=== PATIENT | female | born 1965 | race Caucasian/White ===

== ENCOUNTER 2024-01-25 13:49 | Day surgery (SDC) | payer MEDICARE, OTHER, SELFPAY ==
[2024-01-25] VITALS (17 sets, daily range): BP systolic 93–144; BP diastolic 48–96; BMI 25.6
[2024-01-25 07:57] LABS: % Basophils 0.2 % (0-2); % Eosinophils 0.1 % (0-6); % Immature Granulocytes 0.5 % (0-0.5); % Lymphocytes 6.4 % (20.5-51.1); % Monocytes 3.5 % (1.7-9.3); % Neutrophils 89.3 % (42.2-75.2); Absolute Immature Granulocytes 0.1 10^3/uL (0-0.05); Absolute Lymphocytes 1.2 10^3/uL (1.2-3.4); Absolute Monocytes 0.6 10^3/uL (0.1-0.6); Absolute Neutrophils 16.4 10^3/uL (1.4-6.5); Hematocrit 43.2 % (37.0-47.0); Hemoglobin 14.5 g/dL (12.0-16.0); Mean Corp Hgb Conc. 33.6 g/dL (33.0-37.0); Mean Corpuscular Hgb 29.4 pg (27.0-31.0); Mean Corpuscular Volume 87.4 fL (81.0-99.0); Mean Platelet Volume 10.2 fL (7.4-10.4); Nucleated Red Blood Cells % 0 %; Platelet Count 301 10^3/uL (130-400); Red Blood Cell Count 4.94 10^6/uL (4.20-5.40); White Blood Cell Count 18.3 10^3/uL (4.8-10.8)
[2024-01-25 08:15] LABS: ALT (SGPT) 17 U/L (0-35); AST (SGOT) 23 U/L (14-36); Albumin 4.8 g/dl (3.5-5.0); Alkaline Phosphatase 88 U/L (38-126); Blood Urea Nitrogen 16 mg/dl (7-17); Calcium 9.7 mg/dl (8.4-10.2); Carbon Dioxide 25 mmol/L (22-30); Chloride 104 mmol/L (98-107); Estimated Creatinine Clearance 82 ml/min; Glucose 110 mg/dl (70-99); Potassium 4.4 mmol/L (3.5-5.1); Sodium 141 mmol/L (135-145); Total Bilirubin 0.6 mg/dl (0.2-1.3); Total Protein 7.1 g/dl (6.3-8.2); eGFR > 60.00
[2024-01-25] MEDS: ZOFRAN 4 MG IV ×2 (08:32→12:37)
[2024-01-25] MEDS: DILAUDID 0.5 MG IV ×2 (08:32→10:55)
[2024-01-25] MEDS: NSS 1000 IV (08:32)
[2024-01-25] MEDS: ROCEPHIN 1000 MG IV (08:33)
--- NOTE | 2024-01-25 09:02 | ED.GENMED ---
History of Present Illness
General
Chief Complaint: Abdominal Pain
Source: patient and family
Exam Limitations: none
Time Seen by Provider: 01/25/24 07:44
Nursing documentation reviewed up to this point in time: agreed with
History of Present Illness
History of Present Illness:
58-year-old female MS, interstitial cystitis kidney stones presents with right-sided abdominal pain nausea no vomiting, with urinary frequency and urgency diagnosed with a UTI prescribed Macrobid has not gotten it filled pain worsened this morning,
still has her appendix feels her gallbladder, she feels generally weak like her MS is worsening since she has been ill, has been doing intermittent catheterizations
Past History
Past History
ED Past Medical History: Other (MS)
ED Past Surgical History: Urological
Social History
Tobacco: Non-smoker
Alcohol: None
Drug: None
Living: with family
Review of Systems
Review of Systems
All Other Systems: Not applicable
Constitutional: Reports fatigue; Denies fever
EENT: Reports no symptoms
Respiratory: Reports no symptoms
Cardiac: Reports no symptoms
ABD/GI: Reports abdominal pain and nausea
: Reports dysuria, incontinence and urgency
Phy Exam
Physical Exam
Physical Exam:
Physical Exam
General: 58-year-old female looks uncomfortable
Neck: Dry lips
Heart: s1/s2 regular rate and rhythm, no murmur. equal radial pulses.
Lungs: no acute respiratory distress. clear bilaterally
Abdomen: Tender in the right lower abdomen
Neuro: alert and oriented. Globally weak
Skin: no rash
Psychiatric: well kept. interactive and cooperative
Extremities: no edema
Course
Orders/Labs/Results
Orders:
Orders
01/25/24 07:37
CMP [Comprehensive Metabolic Panel] Urgent
Complete Blood Count/With Diff Urgent
01/25/24 08:16
CT Abd/Pel (IV only)-DH only Urgent
Comment:
Reason For Exam: rlq pain
CefTRIAXone [Rocephin] 1,000 mg IV NOW STA
01/25/24 08:26
0.9% Sodium Chloride 1000 ml [Nss] 1,000 ml IV BOLUS
HYDROmorphone [Dilaudid] 0.5 mg IV NOW STA
Ondansetron Injectable [Zofran] 4 mg IV NOW STA
01/25/24 10:38
Consult Surgery [SURGICAL CONSULT] Urgent
Consulting Provider: Darius Calderon
Was physician already notified: Yes
01/25/24 10:40
HYDROmorphone [Dilaudid] 0.5 mg IV NOW STA
Abnormal Lab Results
01/25/24
07:37
WBC 18.3 H 10^3/uL
(4.8-10.8)
Abs Immat Gran (auto) 0.1 H 10^3/uL
(0-0.05)
Absolute Neuts (auto) 16.4 H 10^3/uL
(1.4-6.5)
Neutrophils % 89.3 H %
(42.2-75.2)
Lymphocytes % 6.4 L %
(20.5-51.1)
Glucose 110 H mg/dl
(70-99)
01/25/24 07:37
01/25/24 07:37
Vital Signs
Initial and Last Documented VS:
Initial Vital Signs
Temp Pulse Resp BP Pulse Ox
98.8 F 97 18 115/74 97
01/25/24 07:22 01/25/24 07:22 01/25/24 07:22 01/25/24 07:22 01/25/24 07:22
Last Documented Vital Signs
Temp Pulse Resp BP Pulse Ox
98.8 F 93 11 122/74 94
01/25/24 07:22 01/25/24 10:19 01/25/24 10:19 01/25/24 10:19 01/25/24 10:19
MDM/Problems Addressed
Differential Diagnosis Includes:
UTI pyelonephritis ureteral stone appendicitis diverticulitis less likely ovarian pathology
MDM/Problems Addressed:
Right lower abdominal pain
Chronic conditions affecting care: Neurological disorder
Acute Exacerbation and/or Progression of Chronic Illness: Neurological disorder
*Radiology
Radiology exam reviewed: preliminary read by ED provider
*Pulse Oximetry
Patient hypoxic: no
*Critical Care Note
Total Time (30-74mins, 75-104mins- exclusive of procedures): Not Applicable
Update Note
Update Note:
Reviewed with radiology positive appendicitis patient updated reviewed with general surgery on-call
ED Attending Note
-
Portions of this chart may have been created with voice recognition software.� Occasional wrong word or��sound alike� substitutions may have occurred due to the inherent limitations of voice recognition software.
Discharge Plan
Departure
Patient Disposition: Admit
Date of Disposition: 01/25/24
Time of Disposition: 10:47
Admit to: Med/Surg
Presentation/result/management discussed w/ accepting MD/DO: GS
Condition: Good
Covid-19: Not Applicable
Discharge Problem:
Acute appendicitis
Prescriptions:
No Action
dalfampridine 10 mg tablet extended release 12 hr
10 mg PO BID
cholecalciferol (vitamin D3) [Vitamin D3] 125 mcg (5,000 unit) Tablet
125 mcg PO DAILY
cranberry
1 cap PO DAILY
polyethylene glycol 3350 17 gram powder in packet
17 g PO PRN PRN (Reason: constipation)
pantoprazole 40 mg tablet,delayed release (DR/EC)
40 mg PO PRN PRN (Reason: GERD)
tramadol 50 mg tablet
50 mg PO Q8H PRN (Reason: Pain) Qty: 14 0RF
methenamine hippurate 1 gram tablet
1 g PO BID Qty: 30 0RF
baclofen 10 mg Tablet
10 mg PO Q4H Qty: 180 0RF
Referrals:
Uli Kohler MD [Family Provider] -
Interventions
Interventions:
*Risk Screen - Suicide Last Done: 01/25/24 07:22
*General Assessment Last Done: 01/25/24 07:22
*Neglect/Abuse Screening Last Done: 01/25/24 07:22
ED- Fall Risk Assessment Last Done: 01/25/24 09:17
*ED COVID-19 Vaccine History Last Done: 01/25/24 07:22
[place]-Rkzmdq-Wvtjjddpbr Assessment Last Done: 01/25/24 07:22
Discharge Date and Time
Print Language: AZERI
--- NOTE | 2024-01-25 11:22 | CON.GS ---
Addendum entered and electronically signed by Darius Calderon MD 01/25/24 14:05:
Patient seen and examined.
Patient is a 58 yo F with a PMH of MS c/b interstitial cystitis, nephrolithiasis, and s/p liposuction who presents with less than 24 hours of RLQ abdominal pain. Ms. Garza states that her symptoms began acutely earlier this morning at around
midnight. Prior to this she states that she was doing well. She reports constant and worsening RLQ abdominal pain. She describes this as a fiery burning sensation. Symptoms are exacerbated by movement. She reports nausea, but denies any
vomiting. No worsening urinary symptoms or fluctuations in bowel habits. No personal or family history of IBD or colon cancers. Last colonoscopy was approximately 10 years ago.
Gen: NAD
Abd: soft, tender to palpation in RLQ, mild distension, non-peritoneal
Labs and CT scan imaging were reviewed.
Patient is a 58 yo F p/w acute appendicitis.
The natural history and pathophysiology of appendicitis was discussed. CT scan imaging as a relates to her appendix was reviewed. Options for management including medical management with antibiotics versus surgical management with appendectomy
were considered and discussed. The pros and cons of both approaches was discussed. Specifically, we discussed failure of medical management and future episodes of appendicitis versus surgical risks. Patient would like to proceed with surgery.
Plan for a laparoscopic appendectomy. The procedure itself, as well as the risks, benefits, and alternatives was discussed. Specifically, we discussed the risks of bleeding, infection, injury to surrounding structures (bowel, bladder), staple line
leak, need for open procedure. Typical postprocedural recovery was discussed. All questions answered. Consent signed.
-- Laparoscopic appendectomy
-- NPO, IVF
-- Antibiotics: Zosyn
-- Admit postoperatively
Original Note:
Consultation
-
Date/Time Consultation Performed: 01/25/2024; 11:22am
Requesting Provider: Dr. Garcia
Reason for Consultation: Abdominal Pain
Medical History
-
Chief Complaint: Abdominal Pain
History of Present Illness:
58 F with a PMHx of MS, interstitial cystitis and nephrolithiasis presents with 1 day of RLQ pain that the patient describes as constant and 'fiery'. Pt states that she has never experienced any pain like this before. The pain is exacerbated by
movement. The pt denies taking any medication to try and relieve the pain. Pt states that she was nauseous this morning, but denies vomiting, diarrhea, constipation, or fevers.
Past Medical History
Past Medical History: Other (MS, Nephrolithiasis, Interstitial Cystitis)
Past Surgical History: Other (Liposuction)
Social History
Tobacco: Non-Smoker
Alcohol: None
Drug: None
Living: With Family
Family History
Family History: Reviewed & Not Pertinent and Other (No family history of IBD or colon cancer)
Allergies / Home Medications
Allergy/AdvReac Type Severity Reaction Status Date / Time
No Known Allergies Allergy Verified 07/29/23 12:21
�Medication �Instructions �Recorded �Confirmed �Type
dalfampridine 10 mg 10 mg PO BID ms 06/24/22 01/25/24 History
tablet,extended release,12 hr
cholecalciferol (vitamin D3) 125 125 mcg PO DAILY 07/26/23 01/25/24 History
mcg (5,000 unit) tablet (Vitamin
D3)
Lactobac no.2-Bifidobac no.1-S. 1 cap PO DAILY 01/25/24 01/25/24 History
thermo 112.5 billion cell capsule
(Visbiome)
baclofen 10 mg tablet 10 mg PO 5/D 01/25/24 01/25/24 History
cranberry extract 200 mg capsule 200 mg PO DAILY 01/25/24 01/25/24 History
omeprazole 10 mg capsule,delayed 10 mg PO DAILYPRN PRN GERD 01/25/24 01/25/24 History
release
sennosides 8.6 mg tablet 8.6 mg PO DAILYPRN PRN constipation 01/25/24 01/25/24 History
Review of Systems
-
History Source: Patient
All other systems: Negative unless noted
A 10 point review of systems was completed, and was negative except as per HPI.
Physical Exam
Vital Signs
Temp Pulse Resp BP Pulse Ox
98.8 F 100 15 139/96 98
01/25/24 07:22 01/25/24 11:00 01/25/24 11:00 01/25/24 11:00 01/25/24 10:30
01/24/24 01/25/24 01/26/24
06:59 06:59 06:59
Actual Weight 65.5 kg
Body Mass Index (BMI) 25.6
Lab Results
01/25/24 07:37
01/25/24 07:37
WBC 18.3 10^3/uL (4.8-10.8) H 01/25/24 07:37
Hgb 14.5 g/dL (12.0-16.0) 01/25/24 07:37
Hct 43.2 % (37.0-47.0) 01/25/24 07:37
Plt Count 301 10^3/uL (130-400) 01/25/24 07:37
Abs Immat Gran (auto) 0.1 10^3/uL (0-0.05) H 01/25/24 07:37
Neutrophils % 89.3 % (42.2-75.2) H 01/25/24 07:37
Physical Exam
General: No Apparent Distress
Respiratory: Non Labored Respirations
GI: Tender (focally in the RLQ), Distended (mildly) and Other (No rebound, rigidity, or guarding)
Skin: Warm
Neuro: Awake, Alert and Oriented
Psych: Calm
Data Reviewed
-
CT Scan: Image Personally Visualized and interpreted and Report Reviewed by me (indicative of acute appendicitis without perforation or abscess. )
Assessment / Plan
-
58 y/o F with PMHx MS, Nephrolithiasis presenting with acute appendicitis.
1. Laparoscopic Appendectomy to be scheduled today
2. NPO, IV Fluids
3. Continue Pain Control
4. Preoperative Abx - Zosyn
[2024-01-25] MEDS: ZOSYN 50 IV ×2 (12:11→17:36)
--- NOTE | 2024-01-25 13:50 | W.SUR.PREOP ---
Pre-Operative Surgical Note
-
I have examined this patient prior to the performance of the scheduled procedure.
The patient's condition is unchanged from the time of the current History and
Physical and the patient is able to undergo the scheduled procedure.
--- NOTE | 2024-01-25 15:37 | W.IMMPOSTOP ---
Addendum entered and electronically signed by Darius Calderon MD 01/25/24 15:46:
[facility]# [id number]
Original Note:
Surgical Immed Post Op Note
-
Primary Surgeon: Yumiko
Assisting Surgeon: None
Pre-op Diagnosis: Acute appendicitis
Post-op Diagnosis: Acute appendicitis
Procedure Performed: Laparoscopic appendectomy
Anesthesia Type: General
Specimen / Cultures:
1. Appendix
Estimated Blood Loss: 3 cc
Complications: None
Operative Findings:
1. Moderately inflamed and dilated appendix, no evidence of perforation
2. Mesentery taken with [employer], base with rose load stapler
--- NOTE | 2024-01-25 16:27 | PTCARENOTE ---
Patient has MS and is concerned she has not had her Baclofen today, Dr Calderon TT regarding same. patient repositioned for comfort with knees elevated, and towel roll under neck. Kia Beth RN BSN.
[2024-01-25] MEDS: NORMOSOL-R 1000 IV (17:02)
[2024-01-25] MEDS: LIORESAL 10 MG PO ×2 (17:07→21:17)
[2024-01-25] MEDS: TYLENOL PO (17:30)
[2024-01-25] MEDS: LOVENOX 40 MG SC (17:36)
[2024-01-25] MEDS: NON-FORMULARY ITEM 10 MG PO (21:17)
[2024-01-25] MEDS: TYLENOL 650 MG PO (21:17)
[2024-01-26] VITALS (8 sets, daily range): BP systolic 103–116; BP diastolic 59–72; PULSE 80; O2SAT 95
[2024-01-26] MEDS: ZOSYN 50 IV ×2 (00:16→05:29)
[2024-01-26] MEDS: TYLENOL 650 MG PO ×5 (00:16→21:27)
[2024-01-26] MEDS: TYLENOL PO (04:13)
[2024-01-26] MEDS: TORADOL 10 MG IV (05:51)
[2024-01-26] MEDS: NON-FORMULARY ITEM 10 MG PO ×2 (09:49→21:27)
[2024-01-26] MEDS: LIORESAL 10 MG PO ×5 (09:49→21:28)
--- NOTE | 2024-01-26 10:24 | W.PN.GS2 ---
Today's Communication / Plan
-
-- HLIV
-- No need for further antibiotics
-- DC home today pending PT eval
Assessment / Plan
-
Patient is a 58 yo F POD#1 s/p laparoscopic appendectomy
Recovering well. No postoperative concerns.
-- Regular diet
-- Pain control: Tylenol, Toradol, Tramadol, IV Dilaudid as needed
-- HLIV
-- No need for further antibiotics
-- Home meds
-- DVT: Lovenox
-- DC home today pending PT eval
Subjective Data
-
Date of Service: January 26, 2024
Feels well and improved. Pain well-controlled. No nausea or vomiting. No fevers. Voiding. Passing flatus, no BM. Minimal ambulation, feels improved strength though still weak.
Objective Data
-
Intake and Output
01/25/24 01/26/24 01/27/24
06:59 06:59 06:59
Intake Total 1458 / 1458
Output Total 550 / 550
Balance 908 / 908
Intake:
Oral fluids 583 / 583
IV fluids (Total) 725 / 725
Normosol-R 1,000 ml @ 100 mls/ 75 / 75
hr IV .Q10H LISANDRA Rx#:[id number]
norm 50 / 50
IV piggybacks 150 / 150
Output:
Urine, Voided 550 / 550
Other:
Number of unmeasured voidings 1
How many times incontinent 1
MODERATE amount urine
How many times incontinent 2
SATURATED amount urine
Vital Signs
Temp Pulse Resp BP Pulse Ox
98.1 F 71 18 103/59 95
01/26/24 07:35 01/26/24 07:35 01/26/24 07:35 01/26/24 07:35 01/26/24 07:35
Lab Results
01/25/24 07:37
01/25/24 07:37
Calcium 9.7 mg/dl (8.4-10.2) 01/25/24 07:37
Total Bilirubin 0.6 mg/dl (0.2-1.3) 01/25/24 07:37
AST 23 U/L (14-36) 01/25/24 07:37
ALT 17 U/L (0-35) 01/25/24 07:37
Alkaline Phosphatase 88 U/L (38-126) 01/25/24 07:37
Total Protein 7.1 g/dl (6.3-8.2) 01/25/24 07:37
Albumin 4.8 g/dl (3.5-5.0) 01/25/24 07:37
Physical Exam
-
Gen: NAD
Abd: soft, NT/ND, non-peritoneal, incisions c/d/i - no erythema, ecchymosis or drainage
[2024-01-26] MEDS: LOVENOX 40 MG SC (18:09)
[2024-01-27 00:17] VITALS: BP 106/62
[2024-01-27] MEDS: TYLENOL PO (01:02)
[2024-01-27] MEDS: TYLENOL 650 MG PO ×3 (04:28→12:17)
[2024-01-27 07:53] VITALS: BP 138/81
--- NOTE | 2024-01-27 08:22 | W.PN.GS2 ---
Today's Communication / Plan
-
-- DC today
Assessment / Plan
-
Patient is a 58 yo F POD#2 s/p laparoscopic appendectomy
Recovering well. No postoperative concerns.
-- Regular diet
-- Pain control: Tylenol, Toradol, Tramadol, IV Dilaudid as needed
-- HLIV
-- No need for further antibiotics
-- Home meds
-- Miralax
-- DVT: Lovenox
-- DC home today
Subjective Data
-
Date of Service: January 27, 2024
No complaints. Pain well-controlled. Denies nausea or vomiting. Passing flatus, no BM. No fevers.
Objective Data
-
Intake and Output
01/26/24 01/27/24 01/28/24
06:59 06:59 06:59
Intake Total 1458 / 1458 720 / 720
Output Total 550 / 550 675 / 675
Balance 908 / 908 45 / 45
Intake:
Oral fluids 583 / 583 720 / 720
IV fluids (Total) 725 / 725
Normosol-R 1,000 ml @ 100 mls/ 75 / 75
hr IV .Q10H LISANDRA Rx#:[id number]
norm 50 / 50
IV piggybacks 150 / 150
Output:
Urine, Voided 550 / 550 675 / 675
Other:
Number of unmeasured voidings 1
How many times incontinent 1
MODERATE amount urine
How many times incontinent 2
SATURATED amount urine
Vital Signs
Temp Pulse Resp BP Pulse Ox
97.8 F 68 16 138/81 95
01/27/24 07:53 01/27/24 07:53 01/27/24 07:53 01/27/24 07:53 01/27/24 07:53
Lab Results
01/25/24 07:37
01/25/24 07:37
Calcium 9.7 mg/dl (8.4-10.2) 01/25/24 07:37
Total Bilirubin 0.6 mg/dl (0.2-1.3) 01/25/24 07:37
AST 23 U/L (14-36) 01/25/24 07:37
ALT 17 U/L (0-35) 01/25/24 07:37
Alkaline Phosphatase 88 U/L (38-126) 01/25/24 07:37
Total Protein 7.1 g/dl (6.3-8.2) 01/25/24 07:37
Albumin 4.8 g/dl (3.5-5.0) 01/25/24 07:37
Physical Exam
-
Gen: NAD
Abd: soft, NT/ND, non-peritoneal, incisions c/d/i - no erythema, ecchymosis, or drainage
--- NOTE | 2024-01-27 08:25 | W.DS.TRANS ---
DC Summary - Nanny Babysitter
-
Discharge Instructions:
Discharge Diagnosis/Procedures Laparoscopic appendectomy
Diet Regular
Activity No strenuous activity
Additional Activity No heavy lifting (>20 lbs) or strenuous
activities for 2 weeks postoperatively
Driving Restrictions As prior to admission
Bathing Restrictions OK to Shower
Wound Care Keep incisions clean and dry. Glue will flake
off in 2 to 3 weeks. Stitches will dissolve.
Instructions:
Stand-Alone Forms:
Changes to Home Medications: No
Discharge Medications:
DC Medications w/original date entered in [employer]
dalfampridine 10 mg tablet,extended release,12 hr 10 mg PO BID ms 06/24/22
cholecalciferol (vitamin D3) 125 mcg (5,000 unit) tablet (Vitamin D3) 125 mcg PO DAILY Supplement 07/26/23
Lactobac no.2-Bifidobac no.1-S. thermo 112.5 billion cell capsule (Visbiome) 1 cap PO DAILY Supplement 01/25/24
acetaminophen 325 mg tablet 650 mg (2 x 325 mg) PO Q4HPRN PRN mild pain #1 tab 01/25/24
baclofen 10 mg tablet 10 mg PO 5/D Muscle Spasms 01/25/24
cranberry extract 200 mg capsule 200 mg PO DAILY Supplement 01/25/24
ibuprofen 200 mg tablet 400 - 600 mg (2 - 3 x 200 mg) PO Q6HPRN PRN moderate pain #1 tab 01/25/24
omeprazole 10 mg capsule,delayed release 10 mg PO DAILYPRN PRN GERD 01/25/24
sennosides 8.6 mg tablet 8.6 mg PO DAILYPRN PRN constipation 01/25/24
tramadol 50 mg tablet 50 mg PO Q6HPRN PRN severe pain/breakthrough pain #5 tabs 01/25/24
Home Medication Changes
Pending Results: No
[2024-01-27] MEDS: NON-FORMULARY ITEM 10 MG PO (09:41)
[2024-01-27] MEDS: LIORESAL 10 MG PO ×2 (09:43→12:17)
[2024-01-27] MEDS: MIRALAX 17 GRAMS PO (10:04)
--- NOTE | 2024-01-27 10:07 | CM ---
senior national account manager reviewed patient's chart and met with patient and patient lives alone in a one story home, patient with MS has aides 3-4 hours per day and services to increase after discharge from the hospital for a few weeks. Patient is current with
[facility], Patient has an electric scooter, lift chair, in home.
PCP: Dr. Kohler
Pharmacy: [facility]
Plan; Home today with homecare
[facility]
[phone]
[2024-01-27 12:40] VITALS: BP 145/72
[2024-01-27 13:24] VITALS: BP 145/72
== END 2024-01-27 15:45 | disposition home or self-care (01) ==
LOC: PACU 13:49
PROVIDERS: Physician Assistant; ATTENDING PHYSICIAN Surgery; EMERGENCY PHYSICIAN Emergency Medicine; FAMILY PHYSICIAN Family Medicine
DX: K35.80 Unspecified acute appendicitis (principal); R10.31 Right lower quadrant pain; N30.10 Interstitial cystitis (chronic) without hematuria
CPT/HCPCS: 44970; 88304; 74177; 80053; 85025; 96361; 96374; 96375; 97163; 97530; 99285; Q9967

== ENCOUNTER 2024-05-15 10:21 | Inpatient (IN) | payer MEDICARE, OTHER, SELFPAY ==
[2024-05-12] VITALS (9 sets, daily range): BP systolic 109–132; BP diastolic 58–92; BMI 27.6
[2024-05-12 11:35] LABS: % Basophils 0.6 % (0-2); % Eosinophils 0.2 % (0-6); % Immature Granulocytes 0.2 % (0-0.5); % Lymphocytes 4.6 % (20.5-51.1); % Neutrophils 88.4 % (42.2-75.2); Absolute Basophils 0.1 10^3/uL (0-0.2); Absolute Lymphocytes 0.4 10^3/uL (1.2-3.4); Absolute Monocytes 0.6 10^3/uL (0.1-0.6); Absolute Neutrophils 8.6 10^3/uL (1.4-6.5); Hematocrit 41.6 % (37.0-47.0); Hemoglobin 13.9 g/dL (12.0-16.0); Mean Corp Hgb Conc. 33.4 g/dL (33.0-37.0); Mean Corpuscular Hgb 28.9 pg (27.0-31.0); Mean Corpuscular Volume 86.5 fL (81.0-99.0); Mean Platelet Volume 9.6 fL (7.4-10.4); Nucleated Red Blood Cells % 0 %; Platelet Count 299 10^3/uL (130-400); Red Blood Cell Count 4.81 10^6/uL (4.20-5.40); Red Cell Dist. Width 12.8 % (11.5-14.5); White Blood Cell Count 9.7 10^3/uL (4.8-10.8)
--- NOTE | 2024-05-12 11:41 | ED.GENMED ---
History of Present Illness
<Rosa Gonzalez PA-C - Last Filed: 05/12/24 18:25>
General
Chief Complaint: Weakness
Source: patient
Exam Limitations: none
Time Seen by Provider: 05/12/24 11:20
Nursing documentation reviewed up to this point in time: agreed with
History of Present Illness
History of Present Illness:
Patient is a 58-year-old female history MS presenting to the emergency department due to generalized weakness. Patient states that she woke up this morning with nasal congestion, mild sore throat, and significant generalized weakness. Patient
states she is unable to move her arms or legs due to weakness. This is much worse than her baseline. Patient denies any associated fevers, chest pain, shortness of breath, productive cough. Patient denies any numbness/tingling in extremities, or
back pain.
Patient did contact her primary care provider and given patient's MS�was sent to the emergency department for further evaluation.
Patient does have history of frequent UTIs although currently denies any urinary symptoms.
Past History
<Rosa Gonzalez PA-C - Last Filed: 05/12/24 18:25>
Past History
ED Past Medical History: Other (MS)
ED Past Surgical History: Urological
Social History
Tobacco: Non-smoker
Alcohol: None
Drug: None
Living: with family
Review of Systems
<Rosa Gonzalez PA-C - Last Filed: 05/12/24 18:25>
Review of Systems
Allergies reviewed?: Yes
All Other Systems: ROS reviewed and negative except as documented in HPI and ROS
Phy Exam
<Rosa Gonzalez PA-C - Last Filed: 05/12/24 18:25>
Physical Exam
Physical Exam:
Vitals: Patient's vital signs are stable. Temp 99.4 F
General: Patient is well appearing, no acute distress
Skin: Warm and dry, no rashes or lesions
Head: Normocephalic, atraumatic
Eyes: Sclera nonicteric. EOMs intact. No nystagmus.
Throat: Posterior pharynx mildly erythematous without any tonsillar edema or exudates. Uvula midline. No SCUDDING INSPECTOR. Protecting airway
Neck: Normal ROM, no cervical spine tenderness, no meningismus
Cardiac: Regular rate and rhythm, no murmurs.
Pulm: Normal respiratory effort, no wheezes, rales, rhonchi heard on exam.
Abdomen: Abdomen soft no abdominal tenderness.
Extremities: No evidence of cyanosis or edema. Generalized weakness in bilateral lower extremities > upper extremities. Palpable distal pulses
Neuro: AAOx3. CN II-XII intact. No focal neurologic deficits. Sensation intact.
Psychiatric: Normal affect.
Course
<Rosa Gonzalez PA-C - Last Filed: 05/12/24 18:25>
Orders/Labs/Results
Orders:
Orders
05/12/24 Lunch
Regular
At Your Request: Full Participation
05/12/24 11:14
Electrocardiogram (*1) Urgent
Reason for Study: Other
Other Reason for Exam: Possible Sepsis
Cardiac Monitoring- Treatment ONCE
EKG- Treatment ONCE
IV Insert/Care/Rem.- Treatment PRN
CR Chest - 2 Views Urgent
Comment:
Reason For Exam: suspected infection
05/12/24 11:26
COVID-19 Antigen Urgent
Source: Nasal Swab
Complete Blood Count/With Diff Urgent
Comprehensive Metabolic Panel Urgent
Lactic Acid Q4H
Comment: ON ICE, CANCEL 2ND ORDER IF FIRST LACTIC ACID LEVEL <2
Influenza A+B Rapid Molecular Urgent
FADIA Source: Nasal Swab
Specimen Description:
05/12/24 12:00
Straight cath- Treatment ONCE
0.9% Sodium Chloride 1000 ml [Nss] 1,000 ml IV BOLUS
Acetaminophen [Tylenol] 650 mg PO NOW STA
05/12/24 12:39
Urinalysis Reflex To Culture Urgent
Date Specimen was Collected: 05/12/24
Time Specimen was Collected: 12:13
05/12/24 14:46
Consult Neurology [NEUROLOGY CONSULT] Routine
Consulting Provider: Urban Alvarez
Was physician already notified: Yes
05/12/24 15:00
Admit/Transfer Patient As Directed
Co-Sign Provider:
Level of Care: Observation services
Assign to:: Medical/Surgical
Physician / Group: Rajesh Thomas
Diagnosis: Generalized weakness
PRN Pain Medication Management As Directed
May give lesser potent ordered pain med per pt: Yes
preference::
Protocol:: Medication orders for pain may be administered in a
manner that supports deferring to patient preference
when the pt is:
- Requesting an ordered lesser potent pain medication.
Least to most potent pain medications are defined
as: acetaminophen < NSAID < tramadol < opioids
(morphine, oxycodone, hydromorphone).
- Requesting a lesser dose of the same medication IF
ORDERED.
- Requesting a less intrusive route of administration
if both routes are prescribed by the provider (PO <
IV).
05/12/24 15:02
Code Status As Directed
Resuscitation Status: Full Code
05/12/24 16:43
Acetaminophen [Tylenol] 650 mg PO Q4HPRN PRN
05/12/24 17:46
Baclofen [Lioresal] 10 mg PO 5/D
05/12/24 17:46
Activity As Directed
Activity Level: With Assistance
Vital Signs As Directed
Frequency: Per unit guidelines
OT Consult [Ot Eval And Treat] Routine
PT Consult [Pt Eval And Treat] Routine
Activity Level: With Assistance
DX Deep Vein Thrombosis Video Routine
05/12/24 18:00
Enoxaparin Sodium [Lovenox] 40 mg SC QPM
05/12/24 20:00
dalfampridine 10 mg PO BID
05/13/24 06:00
Basic Metabolic Panel IN AM
Complete Blood Count/No Diff IN AM
05/13/24 08:00
Cholecalciferol (Vitamin D3) [VITAMIN D3 (cholecalciferol)] 125 mcg PO DAILY
Lactobac/Bifidobac [Visbiome] 1 cap PO DAILY
Abnormal Lab Results
05/12/24
11:26
Absolute Neuts (auto) 8.6 H 10^3/uL
(1.4-6.5)
Absolute Lymphs (auto) 0.4 L 10^3/uL
(1.2-3.4)
Neutrophils % 88.4 H %
(42.2-75.2)
Lymphocytes % 4.6 L %
(20.5-51.1)
Glucose 103 H mg/dl
(70-99)
05/12/24 11:26
05/12/24 11:26
Vital Signs
Initial and Last Documented VS:
Initial Vital Signs
Temp Pulse Resp
99.4 F 103 20
05/12/24 11:08 05/12/24 11:08 05/12/24 11:08
Last Documented Vital Signs
Temp Pulse Resp BP Pulse Ox
99.4 F 100 17 115/92 97
05/12/24 18:09 05/12/24 18:09 05/12/24 18:09 05/12/24 18:09 05/12/24 18:09
<Lucius España, - Last Filed: 05/12/24 13:01>
Orders/Labs/Results
Orders:
Orders
05/12/24 Lunch
Regular
At Your Request: Full Participation
05/12/24 11:14
Electrocardiogram (*1) Urgent
Reason for Study: Other
Other Reason for Exam: Possible Sepsis
Cardiac Monitoring- Treatment ONCE
EKG- Treatment ONCE
IV Insert/Care/Rem.- Treatment PRN
CR Chest - 2 Views Urgent
Comment:
Reason For Exam: suspected infection
05/12/24 11:26
COVID-19 Antigen Urgent
Source: Nasal Swab
Complete Blood Count/With Diff Urgent
Comprehensive Metabolic Panel Urgent
Lactic Acid Q4H
Comment: ON ICE, CANCEL 2ND ORDER IF FIRST LACTIC ACID LEVEL <2
Influenza A+B Rapid Molecular Urgent
FADIA Source: Nasal Swab
Specimen Description:
05/12/24 12:00
Straight cath- Treatment ONCE
0.9% Sodium Chloride 1000 ml [Nss] 1,000 ml IV BOLUS
Acetaminophen [Tylenol] 650 mg PO NOW STA
05/12/24 12:39
Urinalysis Reflex To Culture Urgent
Date Specimen was Collected: 05/12/24
Time Specimen was Collected: 12:13
05/12/24 14:46
Consult Neurology [NEUROLOGY CONSULT] Routine
Consulting Provider: Urban Alvarez
Was physician already notified: Yes
05/12/24 15:00
Admit/Transfer Patient As Directed
Co-Sign Provider:
Level of Care: Observation services
Assign to:: Medical/Surgical
Physician / Group: Rajesh Thomas
Diagnosis: Generalized weakness
PRN Pain Medication Management As Directed
May give lesser potent ordered pain med per pt: Yes
preference::
Protocol:: Medication orders for pain may be administered in a
manner that supports deferring to patient preference
when the pt is:
- Requesting an ordered lesser potent pain medication.
Least to most potent pain medications are defined
as: acetaminophen < NSAID < tramadol < opioids
(morphine, oxycodone, hydromorphone).
- Requesting a lesser dose of the same medication IF
ORDERED.
- Requesting a less intrusive route of administration
if both routes are prescribed by the provider (PO <
IV).
05/12/24 15:02
Code Status As Directed
Resuscitation Status: Full Code
05/12/24 16:43
Acetaminophen [Tylenol] 650 mg PO Q4HPRN PRN
05/12/24 17:46
Baclofen [Lioresal] 10 mg PO 5/D
05/12/24 17:46
Activity As Directed
Activity Level: With Assistance
Vital Signs As Directed
Frequency: Per unit guidelines
OT Consult [Ot Eval And Treat] Routine
PT Consult [Pt Eval And Treat] Routine
Activity Level: With Assistance
DX Deep Vein Thrombosis Video Routine
05/12/24 18:00
Enoxaparin Sodium [Lovenox] 40 mg SC QPM
05/12/24 20:00
dalfampridine 10 mg PO BID
05/13/24 06:00
Basic Metabolic Panel IN AM
Complete Blood Count/No Diff IN AM
05/13/24 08:00
Cholecalciferol (Vitamin D3) [VITAMIN D3 (cholecalciferol)] 125 mcg PO DAILY
Lactobac/Bifidobac [Visbiome] 1 cap PO DAILY
Abnormal Lab Results
05/12/24
11:26
Absolute Neuts (auto) 8.6 H 10^3/uL
(1.4-6.5)
Absolute Lymphs (auto) 0.4 L 10^3/uL
(1.2-3.4)
Neutrophils % 88.4 H %
(42.2-75.2)
Lymphocytes % 4.6 L %
(20.5-51.1)
Glucose 103 H mg/dl
(70-99)
05/12/24 11:26
05/12/24 11:26
Vital Signs
Initial and Last Documented VS:
Initial Vital Signs
Temp Pulse Resp
99.4 F 103 20
05/12/24 11:08 05/12/24 11:08 05/12/24 11:08
Last Documented Vital Signs
Temp Pulse Resp BP Pulse Ox
99.4 F 100 17 115/92 97
05/12/24 18:09 05/12/24 18:09 05/12/24 18:09 05/12/24 18:09 05/12/24 18:09
<Rosa Gonzalez PA-C - Last Filed: 05/12/24 18:25>
MDM/Problems Addressed
Differential Diagnosis Includes:
Not limited to: MS exacerbation, viral illness, dehydration, UTI, pneumonia, etc.
MDM/Problems Addressed:
58-year-old female presenting with significant generalized weakness associated with upper respiratory symptoms. Denies any fever, chills, productive cough, abdominal pain, dysuria. Does have history of frequent UTIs�recently finished antibiotic.
Sent by PCP given significant weakness and known MS. Vitals are stable on arrival, she does have a temp of 90 9.4F. Physical exam as above. Patient well-appearing, in no apparent distress. Heart regular rate and rhythm. Lungs are clear
bilaterally. Abdomen soft and nontender. She does have significant generalized weakness in bilateral lower extremities > upper extremities. No other focal neurologic deficits noted. Extensive workup was obtained. Labs reviewed without any
clinically significant abnormalities. Lactic is normal. Urine shows no signs of infection. Chest x-ray without any signs of acute disease, no pneumonia. Viral swab was negative. ECG without any acute ischemic changes.
Patient was given Tylenol, fluids in the emergency department. Suspect significant weakness likely secondary to MS exacerbation due to viral URI. Patient will require admission for further management given degree of weakness and unable to
transfer/pivot at home. Do not suspect bacterial pharyngitis. No SCUDDING INSPECTOR on exam. No indication for antibiotics at this time. Case was discussed with neurologist, Dr. Alvarez who advised against IV steroids at this time. Patient admitted to
hospitalist for further management of MS exacerbation and generalized weakness secondary to likely viral URI. Patient in stable condition at time of admission.
Chronic conditions affecting care:
MS
Acute Exacerbation and/or Progression of Chronic Illness:
Acute MS exacerbation secondary to URI
<Rosa Gonzalez PA-C - Last Filed: 05/12/24 18:25>
*Radiology
Radiology exam reviewed: preliminary read by ED provider and radiology read reviewed (No acute disease or pneumonia)
*Pulse Oximetry
Patient hypoxic: no
*EKG
Interpreted by ED Provider?: Yes
EKG Intrepretation Date: 05/12/24
Interpretation: normal
Comparison EKG: no changes
Heart Rate: 100
Rate: normal
Rhythm: sinus
[place]: normal axis
Interval: normal interval
QRS Pattern: normal QRS
Ischemia: no ischemia
*Scalping Machine Operator Interpretation
Rate: normal
Interpretation: normal
Heart Rate: 96
Rhythm: sinus
*Critical Care Note
Total Time (30-74mins, 75-104mins- exclusive of procedures): Not Applicable
<Rosa Gonzalez PA-C - Last Filed: 05/12/24 18:25>
Patient Management
Discussion with other providers: Hospitalist and Hand Shaper (Neurology-Dr. Alvarez)
Escalation/DeEscalation of care consider admission/obs:
Admit for further evaluation and management acute MS exacerbation
ED Attending Note
<Rosa Gonzalez PA-C - Last Filed: 05/12/24 18:25>
-
Portions of this chart may have been created with voice recognition software.� Occasional wrong word or��sound alike� substitutions may have occurred due to the inherent limitations of voice recognition software.
<Lucius España DO - Last Filed: 05/12/24 13:01>
ED Attending Note
Patient seen and examined by attending physician: Yes
I performed the substantive portion of visit, reviewed & personally made and approve the management plan that is documented in note by myself or SHELLIE.: Yes
I performed a history and physical exam of patient and discussed management with resident, I reviewed resident's note and agree with documented findings and plan of care.: Yes
ED Attending Note:
I evaluated the patient at bedside. The patient is generally weak and debilitated. She has a history of MS. She describes a viral syndrome with congestion and temperature was slightly elevated here. She normally is nonambulatory and gets around
with a wheelchair. She normally can transfer/pivot. However she could not even transfer/pivot today. She likely has MS exacerbation related to viral illness. Planning IV steroid/admission.
Discharge Plan
Departure
Patient Disposition: Admit
Date of Disposition: 05/12/24
Time of Disposition: 13:30
Presentation/result/management discussed w/ accepting MD/DO: Hospitalist
Discharge Problem:
Weakness, Multiple sclerosis exacerbation, URI (upper respiratory infection)
Interventions
Interventions:
*Risk Screen - Suicide Last Done: 05/12/24 11:14
*General Assessment Last Done: 05/12/24 11:13
*Neglect/Abuse Screening Last Done: 05/12/24 11:14
ED- Fall Risk Assessment Last Done: 05/12/24 12:10
*ED COVID-19 Vaccine History Last Done: 05/12/24 11:13
*Nursing Disposition Last Done: 05/12/24 17:45
ED- Cardiac Assessment Last Done: 05/12/24 12:10
ED- Neurological Assessment Last Done: 05/12/24 12:10
ED- Pulmonary Assessment Last Done: 05/12/24 12:10
Discharge Date and Time
Discharge Date/Time: 05/12/24 17:45
[2024-05-12 11:50] LABS: ALT (SGPT) 24 U/L (0-35); AST (SGOT) 27 U/L (14-36); Albumin 4.8 g/dl (3.5-5.0); Alkaline Phosphatase 84 U/L (38-126); Blood Urea Nitrogen 15 mg/dl (7-17); COVID-19 Antigen Negative (Negative); Calcium 9.6 mg/dl (8.4-10.2); Carbon Dioxide 26 mmol/L (22-30); Chloride 102 mmol/L (98-107); Glucose 103 mg/dl (70-99); Potassium 4.6 mmol/L (3.5-5.1); Sodium 142 mmol/L (135-145); Total Bilirubin 0.5 mg/dl (0.2-1.3); Total Protein 7.2 g/dl (6.3-8.2); eGFR > 60.00
[2024-05-12 12:22] LABS: Lactic Acid 1.3 mmol/L (0.7-2.0)
[2024-05-12] MEDS: TYLENOL 650 MG PO ×2 (12:36→16:54)
[2024-05-12] MEDS: NSS 1000 IV (12:38)
[2024-05-12 13:04] LABS: Urine Albumin Negative (Neg - Trace); Urine Bilirubin Negative (Negative); Urine Character Clear (Clear); Urine Color Yellow; Urine Glucose Negative (Negative); Urine Ketone Negative (Negative); Urine Leukocyte Negative (Negative); Urine Nitrite Negative (Negative); Urine Occult Blood Negative (Negative); Urine Urobilinogen Negative (Neg - 1+)
--- NOTE | 2024-05-12 13:59 | W.PN.UPDATE ---
Update Note
Progress Note Update
This serves as an addendum dictated by Iesha Amos on 05/12/2024.
I saw and examined the patient.
The FASHION PHOTOGRAPHER or PA's note was reviewed and I agree with the note.
Comment:
Patient is 58 years old female with history multiple sclerosis, multiple UTIs in the past, came into the hospital generalized weakness. Patient has symptoms of URI with nasal congestion sore throat generalized weakness and malaise starting
yesterday and no fevers or chills. Patient has significant weakness and although she requires some assistance she noticed that she is more weak than her usual. PCP instructed to come to the hospital for further evaluation. Chest x-ray
unremarkable, urinalysis unremarkable, Normal WBC. She was referred to hospitalist for further evaluation.
Physical exam:
General: Well Developed, Well Nourished and No Apparent Distress
HEENT: Normocephalic, Atraumatic and Moist Mucous Membranes
Respiratory: Clear to Auscultation; Negative Wheezes, Rales or Rhonchi
Cardiac: Regular Rhythm and S1/S2
GI: Soft, Nontender and Nondistended
Musculoskeletal: No Clubbing, No Cyanosis and No Edema
Neuro: Awake, Alert and Oriented, weakness in all extremities and more pronounced in LE
Psych: Calm
A/P:
Generalized weakness/URI/MS--> supportive care, neurology eval, no role for antibiotics, no role for high-dose of steroids. PT OT eval. sap project manager for discharge disposition
--- NOTE | 2024-05-12 14:08 | HPS.HSE ---
Family Physician
-
Family Physician: Uli Kohler
Chief Complaint
-
Weakness
History of Present Illness
Patient is 58-year-old female with past medical history significant for multiple sclerosis. Patient presented to [facility] ED today for evaluation of significant generalized weakness. Patient states that she has significantly increased weakness
when she woke up this morning accompanied by a mild sore throat, chills, and dry cough. She states that sore throat started yesterday evening and she went to bed feeling mainly at baseline minus mild sore throat. When she woke up this morning she
had profound weakness from her baseline. Patient has aide to assist her with ADLs, she generally can transfer/pivot with minimal assistance, today she can barely move any extremity. Once up she called her primary physician who instructed her to go
to emergency room for evaluation. Patient denies any fever, chest pain, shortness of breath, nausea, vomiting, constipation, diarrhea and no urinary symptoms.
Medical History
Past Medical History
Past Medical History: Reports Other
Additional Past Medical History:
Multiple sclerosis
urinary retention with incomplete bladder emptying
Chronic UTI
Past Surgical History: Reports Other
Additional Past Surgical History:
Appendectomy (01/2024)
Social History
Tobacco: Former Smoker
Living: With Family
Employment: Disabled
Family History
Family History: Not pertinent
Allergies / Home Medications
Allergies reflects when Allergies were last updated in [facility].
Home Medications with original date entered in [facility]
Allergy/Medication List:
Allergies
Allergy/AdvReac Type Severity Reaction Status Date / Time
No Known Allergies Allergy Verified 07/29/23 12:21
Home Medications
dalfampridine 10 mg tablet,extended release,12 hr 10 mg PO BID ms 06/24/22
cholecalciferol (vitamin D3) 125 mcg (5,000 unit) tablet (Vitamin D3) 125 mcg PO DAILY Supplement 07/26/23
Lactobac no.2-Bifidobac no.1-S. thermo 112.5 billion cell capsule (Visbiome) 1 cap PO DAILY Supplement 01/25/24
baclofen 10 mg tablet 10 mg PO 5/D Muscle Spasms 01/25/24
cranberry extract 200 mg capsule 200 mg PO DAILY Supplement 01/25/24
estradiol 0.01% (0.1 mg/gram) vaginal cream (Estrace) 1 appful vaginal Q72H 05/12/24
nitrofurantoin macrocrystal 50 mg capsule 50 mg PO DAILY 05/12/24
Review of Systems
-
History Source: Patient
Constitutional: Reports Chills and Other (generalized weakness)
EENT: Reports No Symptoms
Respiratory: Reports Cough (dry)
Cardiac: Reports No Symptoms
Abdomen/GI: Reports No Symptoms
: Reports No Symptoms
Musculoskeletal: Reports No Symptoms
Skin: Reports No Symptoms
Neurological: Reports No Symptoms
Endocrine: Reports No Symptoms
Hematologic/Lymphatic: Reports No Symptoms
Psych: Reports No Symptoms
Physical Exam
Vital Signs
Vital Signs
Temp Pulse Resp BP Pulse Ox
99.4 F 102 14 112/60 98
05/12/24 11:08 05/12/24 14:00 05/12/24 14:00 05/12/24 14:00 05/12/24 12:30
Physical Exam
General: Well Developed, Well Nourished, No Apparent Distress, Comfortable and Conversant
HEENT: NormoCephalic, Moist mucous membranes, Atraumatic, PERRLA, [place] Conjunctivae, Nose Appears Normal and Ears Appear Normal
Respiratory: Clear and Non Labored Respirations; No Wheezes, Rales, Rhonchi or Crackles
Cardiac: S1/S2 and Regular Rhythm; No Murmur, Rub or Gallop
GI: Soft, Non Tender, Non Distended and Normal Bowel Sounds; No Organomegaly
Rectal: Deferred by Provider
Genito-urinary: Deferred by me
Musculoskeletal: No Clubbing, No Cyanosis and No Edema
Skin: Warm and Dry; No Rash
Neuro: Awake, Alert, AO x 3, Nonfocal/grossly intact and Cranial Nerves Intact
Hematologic/Lymphatic: No Lymphadenopathy
Psych: Calm and Intact Judgment/Insight
Laboratory Results
-
05/12/24 11:26
05/12/24 11:26
Laboratory Results
Lactic Acid Cancelled 05/12/24 15:15
Total Bilirubin 0.5 mg/dl (0.2-1.3) 05/12/24 11:26
AST 27 U/L (14-36) 05/12/24 11:26
ALT 24 U/L (0-35) 05/12/24 11:26
Alkaline Phosphatase 84 U/L (38-126) 05/12/24 11:26
Data Reviewed
-
Diagnostic Radiology: Report Reviewed by me (CXR: 1. No radiographic evidence for pneumonia or other acute cardiopulmonary disease. 2. Multilevel osteoporotic insufficiency fractures in the lower thoracic and upper lumbar spine (T12 and L1).)
Lab Data: Labs Reviewed by me
Impression/Plan
-
IMPRESSION/PLAN:
#Severe Weakness
#Multiple Sclerosis
- Admit to Med/Surg for observation
- Neurology Consult
- continue home medications
- Consult PT/OT
Full Code
DVT Prophylaxis: Lovenox SQ
[2024-05-12] MEDS: LOVENOX 40 MG SC (18:29)
[2024-05-12] MEDS: LIORESAL PO (18:30)
[2024-05-12] MEDS: LIORESAL 10 MG PO ×2 (18:30→21:57)
[2024-05-12] MEDS: ANESTHETIC LOZENGE 1 LOZENGE PO (21:56)
[2024-05-13] MEDS: TYLENOL 650 MG PO ×2 (03:52→16:20)
[2024-05-13] MEDS: ANESTHETIC LOZENGE 1 LOZENGE PO ×2 (03:52→20:27)
[2024-05-13 06:00] VITALS: BMI 27.5
[2024-05-13 07:00] VITALS: BP 99/66
[2024-05-13 07:01] LABS: Hematocrit 36.6 % (37.0-47.0); Hemoglobin 12.4 g/dL (12.0-16.0); Mean Corp Hgb Conc. 33.9 g/dL (33.0-37.0); Mean Corpuscular Hgb 28.9 pg (27.0-31.0); Mean Corpuscular Volume 85.3 fL (81.0-99.0); Mean Platelet Volume 10.2 fL (7.4-10.4); Platelet Count 276 10^3/uL (130-400); Red Blood Cell Count 4.29 10^6/uL (4.20-5.40); Red Cell Dist. Width 12.9 % (11.5-14.5); White Blood Cell Count 7.5 10^3/uL (4.8-10.8)
[2024-05-13 07:22] LABS: Blood Urea Nitrogen 13 mg/dl (7-17); Calcium 8.7 mg/dl (8.4-10.2); Carbon Dioxide 26 mmol/L (22-30); Chloride 104 mmol/L (98-107); Estimated Creatinine Clearance 80 ml/min; Glucose 106 mg/dl (70-99); Potassium 4.1 mmol/L (3.5-5.1); Sodium 140 mmol/L (135-145); eGFR > 60.00
--- NOTE | 2024-05-13 08:23 | CON.NEURO ---
Consultation
Order
Date of Consultation: 05/13/24
Requesting Provider:
Reason for Consult:
Subjective/Objective
Subjective Data
Date of Service: May 13, 2024
Objective Data
Vital Signs
Temp Pulse Resp BP Pulse Ox
37.1 C 87 16 99/66 95
05/13/24 07:00 05/13/24 07:00 05/13/24 07:00 05/13/24 07:00 05/13/24 07:00
Lab Results
05/13/24 05:30
05/13/24 05:30
Sodium 140 mmol/L (135-145) 05/13/24 05:30
Potassium 4.1 mmol/L (3.5-5.1) 05/13/24 05:30
BUN 13 mg/dl (7-17) 05/13/24 05:30
Glucose 106 mg/dl (70-99) H 05/13/24 05:30
Calcium 8.7 mg/dl (8.4-10.2) 05/13/24 05:30
Patient Allergies
No Known Allergies Allergy (Verified 07/29/23 12:21)
Medications
-
Active Medications
Generic Name Dose Route Start Last Admin
Trade Name Freq PRN Reason Stop Dose Admin
Acetaminophen 650 mg 05/12/24 16:43 05/13/24 03:52
Acetaminophen 325 Mg Tablet PO 06/09/24 16:42 650 mg
Q4HPRN PRN Administration
mild pain/HOLLOWAY/temp> 100.4F
Baclofen 10 mg 05/12/24 17:46 05/12/24 21:57
Baclofen 10 Mg Tablet PO 06/09/24 17:45 10 mg
5/D LISANDRA Administration
Benzocaine/Menthol 1 lozenge 05/12/24 21:03 05/13/24 03:52
Benzocaine/Menthol Lozenge PO 06/09/24 21:02 1 lozenge
Q4HPRN PRN Administration
sorethroat
Cholecalciferol 125 mcg 05/13/24 08:00
Cholecalciferol (Vitamin D3) 125 Mcg Tablet (5,000 Units) PO 06/10/24 07:59
DAILY LISANDRA
Enoxaparin Sodium 40 mg 05/12/24 18:00 05/12/24 18:29
Enoxaparin Sodium 40 Mg/0.4 Ml Syringe SC 06/09/24 17:59 40 mg
QPM LISANDRA Administration
Lactobacillus/Bifidobacterium 1 cap 05/13/24 08:00
Lactobac/Bifidobac (Visbiome) PO 06/10/24 07:59
DAILY LISANDRA
Non-Formulary Medication 10 mg 05/12/24 20:00
Dalfampridine PO 06/09/24 19:59
BID LISANDRA
Sodium Chloride 0 flush 05/12/24 17:00
Sodium Chloride 0.9% (Flush) Syringe IV 06/09/24 16:59
PER PROTOCOL LISANDRA
Home Medications
�Medication �Instructions �Recorded
dalfampridine 10 mg 10 mg PO BID ms 06/24/22
tablet,extended release,12 hr
cholecalciferol (vitamin D3) 125 125 mcg PO DAILY Supplement 07/26/23
mcg (5,000 unit) tablet (Vitamin
D3)
Lactobac no.2-Bifidobac no.1-S. 1 cap PO DAILY Supplement 01/25/24
thermo 112.5 billion cell capsule
(Visbiome)
baclofen 10 mg tablet 10 mg PO 5/D Muscle Spasms 01/25/24
cranberry extract 200 mg capsule 200 mg PO DAILY Supplement 01/25/24
estradiol 0.01% (0.1 mg/gram) 1 appful vaginal Q72H Hormonal 05/12/24
vaginal cream (Estrace) Agent
nitrofurantoin macrocrystal 50 mg 50 mg PO DAILY Urinary Issue 05/12/24
capsule
Past History
Past History
ED Past Medical History: Other (MS, interstitial cystitis, nephrolithiasis, uremia and sepsis June 2023)
ED Past Surgical History: Appendectomy (January 2024), Urological (Ureteral stent placement) and Other (Liposuction, breast reduction surgery)
Social History
Tobacco: Non-smoker
Alcohol: None
Drug: None
Living: with family
Family History
Family History: Other (Reviewed and noncontributory)
[2024-05-13 08:40] VITALS: BP 121/72; PULSE 90; O2SAT 93
--- NOTE | 2024-05-13 08:57 | W.PN.HOSP.TC ---
Today's Communication/Plan
-
PT OT eval.
Assessment / Plan
Assessment / Plan
Physical exam:
General: Well Developed, Well Nourished and No Apparent Distress
HEENT: Normocephalic, Atraumatic and Moist Mucous Membranes
Respiratory: Clear to Auscultation; Negative Wheezes, Rales or Rhonchi
Cardiac: Regular Rhythm and S1/S2
GI: Soft, Nontender and Nondistended
Musculoskeletal: No Clubbing, No Cyanosis and No Edema
Neuro: Awake, Alert and Oriented, generalized weakness still present
Psych: Calm
A/P:
Fever:
Likely viral illness
On chronic nitrofurantoin as outpatient-restart.
Continue monitor temperature and symptoms
Supportive care
PT OT eval
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
Multiple sclerosis:
Continue dalfampridine 10 mg p.o. twice a day
Continue baclofen 10 mg p.o. 5 times a day
Discussed with neurology and no role for high-dose IV steroids so we will discontinue consult for now unless patient has major exacerbation.
Continue to monitor neurological
DVT prophylaxis:
Lovenox
CODE STATUS:
Full code
Anticipated Discharge: Within 24 hours
Subjective/Interval History
-
Date of Service: May 13, 2024
Patient had some fevers overnight. She still feels weak although slightly better. No shortness of breath.
Objective Data
-
Labs:
Laboratory Results
05/13/24
05:30
WBC 7.5
Hgb 12.4
Hct 36.6 L
Plt Count 276
Sodium 140
Potassium 4.1
Chloride 104
Carbon Dioxide 26
BUN 13
Creatinine 0.7
Glucose 106 H
Calcium 8.7
Vital Signs:
Vital Signs
Temp Pulse Resp BP Pulse Ox
98.8 F 87 16 99/66 95
05/13/24 07:00 05/13/24 07:00 05/13/24 07:00 05/13/24 07:00 05/13/24 07:00
I&O
05/12/24 05/13/24 05/14/24
06:59 06:59 06:59
Intake Total 720 / 720
Output Total 700 / 700
Balance
[2024-05-13 09:05] VITALS: BP 121/72; PULSE 94; O2SAT 94
[2024-05-13] MEDS: VITAMIN D3 (cholecalciferol) 125 MCG PO (09:33)
[2024-05-13] MEDS: VISBIOME 1 CAP PO (09:33)
[2024-05-13] MEDS: LIORESAL 10 MG PO ×5 (09:33→22:20)
[2024-05-13] MEDS: NON-FORMULARY ITEM 10 MG PO ×2 (12:32→22:20)
[2024-05-13] MEDS: MACRODANTIN 50 MG PO (13:00)
[2024-05-13] MEDS: ROBITUSSIN 200 MG PO ×2 (13:12→20:27)
[2024-05-13 15:00] VITALS: BP 102/70
[2024-05-13] MEDS: LIORESAL PO (16:25)
[2024-05-13] MEDS: LOVENOX 40 MG SC (16:53)
--- NOTE | 2024-05-13 17:07 | CM ---
Addendum entered by Sherri Carbajal RN 05/13/24 17:10:
[facility] letter given Pt did not sign copy . Copy on chart.
Original Note:
Alert awake oriented patient who lives alone in a 1 story home with a ramp. She has MS and has care givers daily for 6 hours.She is assisted in activates of daily living.She does have Scooter .She requested [facility] . PT OT recommended SNF.
[facility] in past .[facility] hx
Pharmacy [facility]
PCP Dr Kohler
PLAN She requested [facility] . PT OT recommended SNF
[2024-05-13 23:35] VITALS: BP 125/64
[2024-05-14] MEDS: ANESTHETIC LOZENGE 1 LOZENGE PO ×3 (03:00→22:40)
[2024-05-14 06:00] VITALS: BMI 27.5
[2024-05-14] MEDS: LIORESAL 10 MG PO ×4 (06:42→22:40)
[2024-05-14] MEDS: VITAMIN D3 (cholecalciferol) 125 MCG PO (06:42)
[2024-05-14] MEDS: VISBIOME 1 CAP PO (06:42)
[2024-05-14 07:00] VITALS: BP 115/69
[2024-05-14] MEDS: NON-FORMULARY ITEM 10 MG PO ×2 (07:55→20:51)
[2024-05-14] MEDS: MACRODANTIN 50 MG PO (08:23)
--- NOTE | 2024-05-14 09:19 | W.PN.HOSP.TC ---
Today's Communication/Plan
-
PT OT eval. Supportive care. Discharge planning in progress
Assessment / Plan
Assessment / Plan
Physical exam:
General: Well Developed, Well Nourished and No Apparent Distress
HEENT: Normocephalic, Atraumatic and Moist Mucous Membranes
Respiratory: Clear to Auscultation; Negative Wheezes, Rales or Rhonchi
Cardiac: Regular Rhythm and S1/S2
GI: Soft, Nontender and Nondistended
Musculoskeletal: No Clubbing, No Cyanosis and No Edema
Neuro: Awake, Alert and Oriented, generalized weakness still present
Psych: Calm
A/P:
Fever:
Likely viral illness
Improving
On chronic nitrofurantoin for recurrent UTI as outpatient
Continue monitor temperature and symptoms
Supportive care
PT OT eval
Asked PT to see her again today for reevaluation.
Patient initially wanted to go back home with her usual home care but now she is considering if she needs rehab and wants to discuss further with patient case coordinator.
manager agricultural for discharge disposition
Multiple sclerosis:
Continue dalfampridine 10 mg p.o. twice a day
Continue baclofen 10 mg p.o. 5 times a day
Discussed with neurology on 05/13 (Dr. Urban Alvarez) and no role for high-dose IV steroids so discontinued consult for now unless patient has major exacerbation in which case can call them back.
Continue to monitor neurological
DVT prophylaxis:
Lovenox
CODE STATUS:
Full code
Anticipated Discharge: 24 - 48 hours
Subjective/Interval History
-
Date of Service: May 14, 2024
Patient does notice some improvement but still not back close to her baseline. No fever anymore. Still some dry cough but better overall.
Objective Data
-
Vital Signs:
Vital Signs
Temp Pulse Resp BP Pulse Ox
99 F 87 16 115/69 92
05/14/24 07:00 05/14/24 07:00 05/14/24 07:00 05/14/24 07:00 05/14/24 07:00
I&O
05/13/24 05/14/24 05/15/24
06:59 06:59 06:59
Intake Total 720 / 720 1560 / 1560
Output Total 700 / 700 880 / 880
Balance 680 / 680
[2024-05-14 15:00] VITALS: BP 106/69
[2024-05-14 15:32] VITALS: BP 121/69; PULSE 94; O2SAT 91
[2024-05-14] MEDS: TYLENOL 650 MG PO (17:42)
[2024-05-14] MEDS: LOVENOX 40 MG SC (17:43)
[2024-05-14] MEDS: ROBITUSSIN 200 MG PO ×2 (17:43→22:40)
[2024-05-14] MEDS: SENOKOT 17.2 MG PO (22:40)
[2024-05-14 22:46] VITALS: BP 109/63
[2024-05-15] MEDS: LIORESAL PO (05:11)
[2024-05-15 05:53] LABS: % Basophils 0.7 % (0-2); % Eosinophils 2.7 % (0-6); % Immature Granulocytes 0.4 % (0-0.5); % Lymphocytes 25.3 % (20.5-51.1); % Monocytes 11.7 % (1.7-9.3); % Neutrophils 59.2 % (42.2-75.2); Absolute Eosinophils 0.2 10^3/uL (0-0.7); Absolute Lymphocytes 1.4 10^3/uL (1.2-3.4); Absolute Monocytes 0.7 10^3/uL (0.1-0.6); Absolute Neutrophils 3.3 10^3/uL (1.4-6.5); Hematocrit 39.7 % (37.0-47.0); Hemoglobin 13.7 g/dL (12.0-16.0); Mean Corp Hgb Conc. 34.5 g/dL (33.0-37.0); Mean Corpuscular Hgb 29.8 pg (27.0-31.0); Mean Corpuscular Volume 86.3 fL (81.0-99.0); Mean Platelet Volume 9.7 fL (7.4-10.4); Nucleated Red Blood Cells % 0 %; Platelet Count 238 10^3/uL (130-400); Red Cell Dist. Width 12.6 % (11.5-14.5); White Blood Cell Count 5.5 10^3/uL (4.8-10.8)
[2024-05-15 06:45] LABS: Blood Urea Nitrogen 14 mg/dl (7-17); Calcium 8.7 mg/dl (8.4-10.2); Carbon Dioxide 23 mmol/L (22-30); Chloride 104 mmol/L (98-107); Estimated Creatinine Clearance 94 ml/min; Glucose 105 mg/dl (70-99); Potassium 4.1 mmol/L (3.5-5.1); Sodium 140 mmol/L (135-145); eGFR > 60.00
[2024-05-15 08:03] VITALS: BP 112/73
[2024-05-15] MEDS: MACRODANTIN 50 MG PO (09:20)
[2024-05-15] MEDS: VISBIOME 1 CAP PO (09:20)
[2024-05-15] MEDS: LIORESAL 10 MG PO ×5 (09:20→22:47)
[2024-05-15] MEDS: NON-FORMULARY ITEM 10 MG PO ×2 (09:21→20:49)
[2024-05-15] MEDS: VITAMIN D3 (cholecalciferol) 125 MCG PO (09:21)
--- NOTE | 2024-05-15 10:15 | W.PN.HOSP.TC ---
Addendum entered and electronically signed by Mary Ellen Duke MD 05/15/24 12:54:
Addendum
urine is very cloudy
Empiric IV cefepime based on prior cultures until we get the new culture result
End
Original Note:
Today's Communication/Plan
-
Treat Constipation
re- test urine with straight cath, blood culture
Consult Dr Monteiro
Assessment / Plan
Assessment / Plan
Physical exam:
General: Well Developed, Well Nourished and No Apparent Distress
HEENT: Normocephalic, Atraumatic and Moist Mucous Membranes
Respiratory: Clear to Auscultation; Negative Wheezes, Rales or Rhonchi
Cardiac: Regular Rhythm and S1/S2
GI: Soft, Nontender and Nondistended
Musculoskeletal: No Clubbing, No Cyanosis and No Edema
Neuro: Awake, Alert and Oriented, generalized weakness still present, weakness, she followed commands.
Psych: Calm
A/P:
# Fever:
Suspect UTI
Low grade fevers
Will re- test urine as nursing staff reported cloudy urine over the weekend, do straight cath for specimen, do blood culture
On chronic nitrofurantoin for recurrent UTI as outpatient which raises concern regarding false negative urinalysis
Continue monitor temperature and symptoms
Supportive care
Multiple sclerosis:
Continue dalfampridine 10 mg p.o. twice a day
Continue baclofen 10 mg p.o. 5 times a day
Discussed with neurology on 05/13 (Dr. Urban Alvarez) and no role for high-dose IV steroids so discontinued consult for now unless patient has major exacerbation in which case can call them back.
Continue to monitor neurological
Will consult Dr Monteiro
DVT prophylaxis:
Lovenox
CODE STATUS:
Full code
# Constipation, d/w pt, will try another dose Senna, if no BM, will do Dulcolax supp.
Total time spent to see the patient, examine the patient, review data and lab results, discuss treatment plan with patient, foster care case manager, nursing staff around 55 minutes
Anticipated Discharge: 24 - 48 hours
Subjective/Interval History
-
Date of Service: May 15, 2024
No sob
No chest pain
No fevers
Objective Data
-
Labs:
Laboratory Results
05/15/24
05:42
WBC 5.5
Hgb 13.7
Hct 39.7
Plt Count 238
Sodium 140
Potassium 4.1
Chloride 104
Carbon Dioxide 23
BUN 14
Creatinine 0.6
Glucose 105 H
Calcium 8.7
Vital Signs:
Vital Signs
Temp Pulse Resp BP Pulse Ox
98.3 F 86 17 112/73 94
05/15/24 08:03 05/15/24 08:03 05/15/24 08:03 05/15/24 08:03 05/15/24 08:03
I&O
05/14/24 05/15/24 05/16/24
06:59 06:59 06:59
Intake Total 1560 / 1560 480 / 480
Output Total 880 / 880 400 / 400
Balance 680 / 680 80 / 80
[2024-05-15] MEDS: SENOKOT 17.2 MG PO ×2 (10:42→22:47)
[2024-05-15 11:25] LABS: Urine Albumin Trace (Neg - Trace); Urine Bilirubin Negative (Negative); Urine Character Very Cloudy (Clear); Urine Color Yellow; Urine Glucose Negative (Negative); Urine Ketone Trace (Negative); Urine Leukocyte 2+ (Negative); Urine Nitrite Positive (Negative); Urine Occult Blood 3+ (Negative); Urine Specific Gravity 1.025 (<1.030); Urine Urobilinogen Negative (Neg - 1+)
--- NOTE | 2024-05-15 12:00 | VATNOTE ---
During routine assessment it was noted that pt's upper arm was red, swollen, and hot. Pt reported itchiness and that the IV had not been used recently. IV discontinued immediately. Attempted to accurately measure dimensions of red, swollen area, but
area was of an irregular shape and approximately 23 cm long x 22 cm wide. Area marked with skin marker for continued assessment. RUE circumference 10 cm above the antecubital fossa measured 34 cm, while the same measurement on the left arm measured
32 cm. PCN notified and asked to contact MD for further evaluation.
[2024-05-15 12:04] LABS: Urine Urothelial Cell 0-2 /LPF (FEW)
[2024-05-15 12:06] LABS: Urine Bacteria Many (Negative); Urine White Cell 40-50 /HPF (0-5)
--- NOTE | 2024-05-15 13:24 | CM ---
Patient seen at bedside. Patient requesting referral to [facility], referral sent. No PM&R consult, CM sent TT requesting PM&R consult and awaiting response from [facility]. Patient now changed to INP as of 05/15/24. CM awaiting response from [facility] and PM&R
assessment.
[2024-05-15] MEDS: STERILE WATER FOR INJECTION 10 ML IV ×2 (14:30→22:48)
[2024-05-15] MEDS: MAXIPIME 1000 MG IV ×2 (14:30→22:48)
[2024-05-15 15:14] VITALS: BP 108/64
[2024-05-15] MEDS: LOVENOX 40 MG SC (17:42)
[2024-05-15] MEDS: ROBITUSSIN 200 MG PO (17:55)
[2024-05-15] MEDS: ANESTHETIC LOZENGE 1 LOZENGE PO (17:55)
[2024-05-15] MEDS: OCEAN, SALINE MIST 1 SPRAYS NASAL (17:56)
[2024-05-15 23:25] VITALS: BP 105/64
[2024-05-16] MEDS: STERILE WATER FOR INJECTION 10 ML IV (05:20)
[2024-05-16] MEDS: MAXIPIME 1000 MG IV (05:21)
[2024-05-16] MEDS: BENADRYL 25 MG PO ×3 (06:24→20:16)
[2024-05-16] MEDS: PEPCID 40 MG PO (06:24)
[2024-05-16 07:20] VITALS: BP 100/64
[2024-05-16] MEDS: CIPRO 500 MG PO ×2 (08:02→20:16)
[2024-05-16] MEDS: VITAMIN D3 (cholecalciferol) 125 MCG PO (08:03)
[2024-05-16] MEDS: VISBIOME 1 CAP PO (08:03)
[2024-05-16] MEDS: LIORESAL 10 MG PO ×5 (08:03→20:16)
[2024-05-16] MEDS: SOLU-MEDROL PF 20 MG IV (08:04)
[2024-05-16] MEDS: NON-FORMULARY ITEM 10 MG PO ×2 (08:04→20:17)
[2024-05-16] MEDS: DULCOLAX 10 MG RECTAL (08:14)
--- NOTE | 2024-05-16 10:43 | W.PN.HOSP.TC ---
Today's Communication/Plan
-
c/w Cipro
F/w dc planning.
Assessment / Plan
Assessment / Plan
Physical exam:
General: Well Developed, Well Nourished and No Apparent Distress
HEENT: Normocephalic, Atraumatic and Moist Mucous Membranes
Respiratory: Clear to Auscultation; Negative Wheezes, Rales or Rhonchi
Cardiac: Regular Rhythm and S1/S2
GI: Soft, Nontender and Nondistended
Musculoskeletal: No Clubbing, No Cyanosis and No Edema
Skin : red skin rash in upper extremities.
Neuro: Awake, Alert and Oriented, generalized weakness still present, weakness, she followed commands.
Psych: Calm
A/P:
# Skin rash
possible drug rash
will give one dose of steroid
# Fever due to UTI
Low grade fever is resolving, pt feels better
Started on cefepime but developed red itchy rash in arms, will stop it and give Cipro for now, await blood culture and urine culture
Will re- test urine as nursing staff reported cloudy urine over the weekend, do straight cath for specimen, do blood culture
On chronic nitrofurantoin for recurrent UTI as outpatient which raises concern regarding false negative urinalysis, will hold it.
Continue monitor temperature and symptoms
Supportive care
#Multiple sclerosis:
Continue dalfampridine 10 mg p.o. twice a day
Continue baclofen 10 mg p.o. 5 times a day
Discussed with neurology on 05/13 (Dr. Urban Alvarez) and no role for high-dose IV steroids so discontinued consult for now unless patient has major exacerbation in which case can call them back.
Continue to monitor neurological
Will consult Dr Monteiro
DVT prophylaxis:
Lovenox
CODE STATUS:
Full code
# Constipation, d/w pt, Senna is not helping, will do Dulcolax supp. Abdomen is soft, no nausea.
Total time spent to see the patient, examine the patient, review data and lab results, discuss treatment plan with patient, case repairer, nursing staff around 55 minutes
Anticipated Discharge: 24 - 48 hours
Subjective/Interval History
-
Date of Service: May 16, 2024
No chest pain
No sob
No fevers
Itchy patches over night
Objective Data
-
Vital Signs:
Vital Signs
Temp Pulse Resp BP Pulse Ox
98.7 F 82 20 100/64 95
05/16/24 07:20 05/16/24 07:20 05/16/24 07:20 05/16/24 07:20 05/16/24 07:20
I&O
05/15/24 05/16/24 05/17/24
06:59 06:59 06:59
Intake Total 480 / 480 660 / 660
Output Total 400 / 400 275 / 275
Balance 80 / 80 385 / 385
--- NOTE | 2024-05-16 18:00 | CON.MD ---
Documented by User: Marie Lacy PA-C 05/17/24 09:37
Consultation - Medical
-
Referring Provider: Mary Ellen Good
Chief Complaint: debility, worsening function
History of Present Illness: 58-year-old female with PMH (Multiple sclerosis, urinary incontinence, neurogenic bladder,urinary tract infections, GERD, constipation) presented to [facility] on 05/12/2024 with significant generalized weakness
from her baseline with inability to move her arms/legs upon awakening also with sore throat,nasal congestion, and malaise that started the day prior.� Prior to this event was doing well at home and had an aide come in a few days a week.�She came to
the hospital for further evaluation at the recommendation of her PCP. .Chest x-ray unremarkable, except for T12 and L1 osteoporotic insufficiency fractures, urinalysis unremarkable, Normal WBC. Influenza - negative. Blood culture- no growth in 24
hours. 05/16/24 -Urine culture- preliminary - >100,000 cfu/ml E.Coli. Patient was started on Cefepime initially but was switched to Po Cipro after developing rash in both arms
Patient reports to feeling a little better than before. Says that her upper respiratory infection has gotten better and is now just her throat with mucous. She is now able to move her arms since being in the hospital. Reports recurrent UTI. Was seen
by her OP urologist and started on Nitrofurantoin prophylaxis 1 week ago. Had discussion that she could have cystitis. She voices wanting to go to [facility] since she has done well there in the past getting back to her functional baseline in order
to go back home.
Past Medical History: Multiple sclero,sis urinary retention with incomplete bladder emptying, Chronic UTI
Procedure History: Appendectomy (01/2024)
Family History: Mother with history of CVA
Social History:
Functional Level Premorbidly: Nonambulatory at baseline, but will squat�pivot transfer to/from power wheelchair with min assist. Has brick catcher 5 hours a day in afternoon, harder to get up for toilet in afternoon. Normally pivot transfers into
scooter.
Functional Level Currently: Transfer�mod assist x 2 person, toileting�dependent, lower extremity self-care�dependent, bed mobility�dependent,
Tobacco: Former smoker
Alcohol: Denies
Drug use: Denies
Lives with: Alone
24-hour assistance available:
Number of floors: 1
# steps to enter: none, ramp
# steps to second floor:
Potential First floor set up: yes
Driving: no
Occupation: Disabled
Allergies:
Allergy/AdvReac Type Severity Reaction Status Date / Time
No Known Allergies Allergy Verified 07/29/23 12:21
Review of Systems:
Constitutional: (x) Normal _
Eye: (x) Normal _
Ear/Nose/Throat: (x) Normal _
Respiratory: (x) URI
Cardiovascular: (x) Normal _
Gastrointestinal: (x) constipation
Genitourinary: (x) recurrent uti, neurogenic bladder
Musculoskeletal: (x) generalized weakness
Integumentary: (x) rash upper extremity bilaterally
Neurologic: (x) MS
Psychiatric: (x) Normal _
Endocrine: (x) Normal _
Hematologic/Lymphatic: (x) Normal _
Allergic/Immunologic: (x) Normal _
Medications:
Active Current Visit Medication List
Category Date Time Status
Acetaminophen [Tylenol] Med 05/12/24 16:43 Active
650 mg PO Q4HPRN PRN
Baclofen [Lioresal] Med 05/12/24 17:46 Active
10 mg PO 5/D
Benzocaine/Menthol [Anesthetic Lozenge] Med 05/12/24 21:03 Active
1 lozenge PO Q4HPRN PRN
Bisacodyl [Dulcolax] Med 05/15/24 10:17 Active
10 mg RECTAL DAILYPRN PRN
Cholecalciferol (Vitamin D3) [VITAMIN D3 ( Med 05/13/24 08:00 Active
cholecalciferol)]
125 mcg PO DAILY
Ciprofloxacin HCl [Cipro] Med 05/16/24 08:00 Active
500 mg PO BID
Diphenhydramine [Benadryl] Med 05/16/24 06:20 Active
25 mg PO Q4HPRN PRN
Enoxaparin Sodium [Lovenox] Med 05/12/24 18:00 Active
40 mg SC QPM
Flush (0.9% Sodium Chloride) [Flush (Nss)] Med 05/12/24 17:00 Active
See Dose Instructions IV PER PROTOCOL
Guaifenesin Solution [Robitussin] Med 05/13/24 12:46 Active
200 mg PO Q4HPRN PRN
Lactobac/Bifidobac [Visbiome] Med 05/13/24 08:00 Active
1 cap PO DAILY
Sennosides [Senokot] Med 05/14/24 22:00 Active
17.2 mg PO HS
Sodium Chloride [[place], Saline Mist] Med 05/14/24 21:04 Active
See Dose Instructions NASAL QIDPRN PRN
dalfampridine Med 05/13/24 13:00 Active
See Dose Instructions PO BID
Vitals:
Temp Pulse Resp BP Pulse Ox
98.7 F 82 20 100/64 95
05/16/24 07:20 05/16/24 07:20 05/16/24 07:20 05/16/24 07:20 05/16/24 07:20
Height 5 ft 3 in
Actual Weight 70.505 kg
Body Mass Index (BMI) 27.5
Physical Exam:
General Appearance/Observation: Well-developed, well-nourished individual in no apparent distress. Resting in bed
Pain/Comfort Assessment: Denies
Mood/Affect: Appropriate, pleasant
Integumentary/Operative Site:
Pressure Ulcer Evaluation: absent over heels. wedge cushion underneath knees and heels
Other Type of Wound: absent
Eyes: Conjunctiva/Lids: normal Pupils: pupils equal round and reactive to light and Accommodation
Ears/Nose/Throat: oral mucosa moist, throat clear. Lips/Teeth/Gums: normal
Neck: muscle spasm and tenderness
Cardiovascular: Heart: regular, no murmur
Pulses: dorsalis pedis 2+ bilaterally
Respiratory: Respiratory Effort/Chest Expansion: normal Auscultation: Clear to auscultation bilaterally
Gastrointestinal: abdomen not tender, no distension, normal abdominal bowel sounds
Genitourinary: purwick
Extremities: Edema: None Cyanosis: None Trophic changes: None
Neurology Exam:
Orientation: Alert, Oriented to self, Time, Place
Memory: Intact for immediate medical concerns
Repetition: Intact
Comprehension: Intact
Two step command: Intact
Naming: Intact
Cranial Nerves:
CNII: Pupillary light reflex: Intact Visual Field: Intact
CN III, IV, : Extraocular muscles: Intact
CN V: Facial Sensation at Forehead: Intact, Maxilla: Intact, Mandible: Intact
CN VII: Facial movement: Symmetric
CN VIII: Hearing: Normal
CN IX/X: Speech & swallow: Normal, Position of Uvula: Midline
CN XI: Shoulder shrug: Symmetric
CN XII: Tongue protrusion: Midline
Sensory:
Light touch: Intact in bilateral upper and lower extremities
Reflexes:
Babinski: up going bilaterally
Clonus: None
Mer: positive bilaterally
Cerebellar: Dysmetria/Ataxia: None
Musculoskeletal:
�Motor: (Manual muscle scale 0-5)
� � �
Muscle� � ��� � ���SA�� ���EF� � ��� ���WE� � ��� ���EE� � ��� ���FF� � ��� ���FA� � ��� ���HF� � ��� ���KE� � ��� ���DF� � ��� ���EHL� � ��� ���PF�� �
� � ��Right� ���� � ���2+�� � � ��� ���4�� � � ��� ���4�� � � ��� ���4�� � � ��� ����� � � ��� ����� � � ��� ���1�� � � ��� ���2�� � � ��� � � � 1� � ��� �� � 1 � � ��� ���0� � � �
� � ��Left�� � ���2-� � ��� ���3� � ��� ���4� � ��� ���3� � ��� ��� � ��� ��� � ��� ���1� � ��� ���1� � ��� � � � 1- ��� �� � 0� ��� ���0�� �
� � ��� ���� ���� ���� ���� ���� ���� ���� ���� ���� ���� ���� �
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 Able to slowly make a fist. Difficulty opening her hand back up. stiffness
Tone: Increased in bilateral lower extremities limiting full range of motion.� Normal tone in bilateral upper extremities, except increase tone in left hand,fingers and decreased rom of left shoulder
Range of Motion: Passively within normal limits . Decreased rom of left shoulder and ankles
Lab Results:
Labs
WBC 5.5 10^3/uL (4.8-10.8) 05/15/24 05:42
RBC 4.60 10^6/uL (4.20-5.40) 05/15/24 05:42
Hgb 13.7 g/dL (12.0-16.0) 05/15/24 05:42
Hct 39.7 % (37.0-47.0) 05/15/24 05:42
MCV 86.3 fL (81.0-99.0) 05/15/24 05:42
MCH 29.8 pg (27.0-31.0) 05/15/24 05:42
MCHC 34.5 g/dL (33.0-37.0) 05/15/24 05:42
RDW 12.6 % (11.5-14.5) 05/15/24 05:42
Plt Count 238 10^3/uL (130-400) 05/15/24 05:42
MPV 9.7 fL (7.4-10.4) 05/15/24 05:42
Abs Immat Gran (auto) 0.0 10^3/uL (0-0.05) 05/15/24 05:42
Absolute Neuts (auto) 3.3 10^3/uL (1.4-6.5) 05/15/24 05:42
Absolute Lymphs (auto) 1.4 10^3/uL (1.2-3.4) 05/15/24 05:42
Absolute Monos (auto) 0.7 10^3/uL (0.1-0.6) H 05/15/24 05:42
Absolute Eos (auto) 0.2 10^3/uL (0-0.7) 05/15/24 05:42
Absolute Basos (auto) 0.0 10^3/uL (0-0.2) 05/15/24 05:42
Immature Gran % 0.4 % (0-0.5) 05/15/24 05:42
Neutrophils % 59.2 % (42.2-75.2) 05/15/24 05:42
Lymphocytes % 25.3 % (20.5-51.1) 05/15/24 05:42
Monocytes % 11.7 % (1.7-9.3) H 05/15/24 05:42
Eosinophils % 2.7 % (0-6) 05/15/24 05:42
Basophils % 0.7 % (0-2) 05/15/24 05:42
Nucleated RBC % 0 % 05/15/24 05:42
Sodium 140 mmol/L (135-145) 05/15/24 05:42
Potassium 4.1 mmol/L (3.5-5.1) 05/15/24 05:42
Chloride 104 mmol/L (98-107) 05/15/24 05:42
Carbon Dioxide 23 mmol/L (22-30) 05/15/24 05:42
BUN 14 mg/dl (7-17) 05/15/24 05:42
Creatinine 0.6 mg/dL (0.6-1.0) 05/15/24 05:42
Estimated Creat Clear 94 ml/min 05/15/24 05:42
eGFR > 60.00 05/15/24 05:42
Glucose 105 mg/dl (70-99) H 05/15/24 05:42
Lactic Acid Cancelled 05/12/24 15:15
Calcium 8.7 mg/dl (8.4-10.2) 05/15/24 05:42
Total Bilirubin 0.5 mg/dl (0.2-1.3) 05/12/24 11:26
AST 27 U/L (14-36) 05/12/24 11:26
ALT 24 U/L (0-35) 05/12/24 11:26
Alkaline Phosphatase 84 U/L (38-126) 05/12/24 11:26
Total Protein 7.2 g/dl (6.3-8.2) 05/12/24 11:26
Albumin 4.8 g/dl (3.5-5.0) 05/12/24 11:26
Urine Color Yellow 05/15/24 11:09
Urine Clarity Very cloudy (Clear) 05/15/24 11:09
Urine pH 6.0 (5.0-9.0) 05/15/24 11:09
Ur Specific [place] 1.025 (<1.030) 05/15/24 11:09
Urine Ketones Trace (Negative) A 05/15/24 11:09
Ur Occult Blood Reflex 3+ (Negative) A 05/15/24 11:09
Urine Nitrite (Reflex) Positive (Negative) A 05/15/24 11:09
Urine Bilirubin Negative (Negative) 05/15/24 11:09
Urine Urobilinogen Negative (Neg - 1+) 05/15/24 11:09
Leukocyte Esterase Rfl 2+ (Negative) A 05/15/24 11:09
Urine RBC 11-15 /HPF (0-2) A 05/15/24 11:09
Urine WBC (Reflex) 40-50 /HPF (0-5) A 05/15/24 11:09
Ur Squamous Epith Cells 6-10 /LPF (Few) 05/15/24 11:09
Ur Urothelial Cells 0-2 /LPF (FEW) 05/15/24 11:09
Urine Bacteria (Reflex) Many (Negative) A 05/15/24 11:09
Urine Glucose Negative (Negative) 05/15/24 11:09
Urine Albumin (Reflex) Trace (Neg - Trace) 05/15/24 11:09
SARS-CoV-2 Antigen Negative (Negative) 05/12/24 11:26
Diagnostic Results: as per HPI
Assessment: 58-year-old female with PMH (Multiple sclerosis, urinary incontinence, neurogenic bladder,urinary tract infections, GERD, constipation, COVID-19) presented to [facility] on 05/12/2024 with significant generalized weakness and
URI symptoms. Found to have UTI was treated with antibiotics.
Plan
PT/OT to increase independence with ADLs, improve balance, coordination, endurance, strength, mobility, community reintegration, decreased burden of care on others and family education.
Debility:Cont PT/OT
Spasticity: Continue baclofen 10 mg p.o. 5 times a day. Adjust medications as needed. Continue range of motion exercises and stretching program.
MS: Continue dalfampridine 10 mg p.o. twice a day. Continue to monitor neurologic status. Per neurology-no role for high-dose IV steroids at the moment
Suspect UTI : Low grade fevers. On chronic nitrofurantoin for recurrent UTI as outpatient-started 1 week ago per patient. Blood culture negative, urine [id number].coli >100,000. Was started on cefepime, but changed to Cipro due to
development of red itchy rash on arms
Anemia: Likely multifactorial. Continue to monitor.
Psych: Psychology consult. Monitor mood, adjust medications as needed.
Skin: monitor for pressure sores/rashes/lesions. Rash on both arms possible reaction to cefepime- to receive 1 dose of steroids.
Pain: acetaminophen as needed.
Bowel/constipation: Colace, Senna, PRN bisacodyl.
Neurogenic bladder: Has hypotonic bladder and detrusor hyperactivity. -Follows with Dr. Watkins. Stu
GI Prophylaxis: Pantoprazole
DVT Prophylaxis: Mechanical and Lovenox
Pulmonary: Incentive spirometry
Safety: Continue to reinforce assistance with all transfers.
Code Status: Full code
Dispo (date/plan/equipment needs): Home with family care. Social history reviewed.
Functional and Medical Goals: Modified Independent with ADL�s, ambulation, transfers
Discharge disposition: acute inpatient rehab
Summary recommendations: Patient with MS known to [facility] acute inpatient from prior admission due to functional decline, worsening weakness usually after an infection. Currently admitted with worsening weakness, URI symptoms requiring 2 people assist.
She would benefit from a short acute rehab to bring her back to at least 1 person assist in order to go home at her baseline.
Pain: acetaminophen as needed.
Bowel/constipation: Colace, Senna, PRN bisacodyl.
Debility:Cont PT/OT
MS: Continue dalfampridine 10 mg p.o. twice a day. Continue to monitor neurologic status. Per neurology-no role for high-dose IV steroids at the moment
Suspect UTI : Low grade fevers. On chronic nitrofurantoin for recurrent UTI as outpatient-started 1 week ago per patient. Blood culture negative, urine [id number]-Z.coli >100,000. Was started on cefepime, but changed to Cipro due to
development of red itchy rash on arms
DVT Prophylaxis: Mechanical and Lovenox
Pulmonary: Incentive spirometry
Safety: Continue to reinforce assistance with all transfers.
Thank you for allowing me to care for your patient. Please contact me with any questions or concerns.

Documented by User: Wesley Monteiro MD 05/17/24 15:32
Consultation - Medical
-
Referring Provider: Mary Ellen Good
Chief Complaint: debility, worsening function
History of Present Illness: 58-year-old female with PMH (Multiple sclerosis, urinary incontinence, neurogenic bladder,urinary tract infections, GERD, constipation) presented to [facility] on 05/12/2024 with significant generalized weakness
from her baseline with inability to move her arms/legs upon awakening also with sore throat,nasal congestion, and malaise that started the day prior.� Prior to this event was doing well at home and had an aide come in a few days a week.�She came to
the hospital for further evaluation at the recommendation of her PCP. .Chest x-ray unremarkable, except for T12 and L1 osteoporotic insufficiency fractures, urinalysis unremarkable, Normal WBC. Influenza - negative. Blood culture- no growth in 24
hours. 05/16/24 -Urine culture- preliminary - >100,000 cfu/ml E.Coli. Patient was started on Cefepime initially but was switched to Po Cipro after developing rash in both arms
Patient reports to feeling a little better than before prior to coming in. Says that her upper respiratory infection has gotten better and is now just her throat with mucous. She is now able to move her arms since being in the hospital. Reports
recurrent UTI. Was seen by her OP urologist and started on Nitrofurantoin prophylaxis 1 week ago. Had discussion that she could have cystitis. She voices wanting to go to [facility] since she has done well there in the past getting back to her
functional baseline in order to go back home.
Past Medical History: Multiple sclero,sis urinary retention with incomplete bladder emptying, Chronic UTI
Procedure History: Appendectomy (01/2024)
Family History: Mother with history of CVA
Social History:
Functional Level Premorbidly: Nonambulatory at baseline, but will squat�pivot transfer to/from power wheelchair with min assist. Has brick catcher 5 hours a day in afternoon, harder to get up for toilet in afternoon. Normally pivot transfers into
scooter.
Functional Level Currently: Transfer�mod assist x 2 person, toileting�dependent, lower extremity self-care�dependent, bed mobility�dependent,
Tobacco: Former smoker
Alcohol: Denies
Drug use: Denies
Lives with: Alone
24-hour assistance available: No
Number of floors: 1
# steps to enter: none, ramp
# steps to second floor: None
Potential First floor set up: yes
Driving: no
Occupation: Disabled
Allergies:
Allergy/AdvReac Type Severity Reaction Status Date / Time
No Known Allergies Allergy Verified 07/29/23 12:21
Review of Systems:
Constitutional: (x) abNormal _
Eye: (x) Normal _
Ear/Nose/Throat: (x) Normal _
Respiratory: (x) URI
Cardiovascular: (x) Normal _
Gastrointestinal: (x) constipation
Genitourinary: (x) recurrent uti, neurogenic bladder, had been having spastic bladder versus UTIs sees Dr. Watkins. Continues to self cath 4 times a day
Musculoskeletal: (x) generalized weakness
Integumentary: (x) rash left upper extremity
Neurologic: (x) MS
Psychiatric: (x) Normal _
Endocrine: (x) Normal _
Hematologic/Lymphatic: (x) Normal _
Allergic/Immunologic: (x) Normal _
Medications:
Active Current Visit Medication List
Category Date Time Status
Acetaminophen [Tylenol] Med 05/12/24 16:43 Active
650 mg PO Q4HPRN PRN
Baclofen [Lioresal] Med 05/12/24 17:46 Active
10 mg PO 5/D
Benzocaine/Menthol [Anesthetic Lozenge] Med 05/12/24 21:03 Active
1 lozenge PO Q4HPRN PRN
Bisacodyl [Dulcolax] Med 05/15/24 10:17 Active
10 mg RECTAL DAILYPRN PRN
Cholecalciferol (Vitamin D3) [VITAMIN D3 ( Med 05/13/24 08:00 Active
cholecalciferol)]
125 mcg PO DAILY
Ciprofloxacin HCl [Cipro] Med 05/16/24 08:00 Active
500 mg PO BID
Diphenhydramine [Benadryl] Med 05/16/24 06:20 Active
25 mg PO Q4HPRN PRN
Enoxaparin Sodium [Lovenox] Med 05/12/24 18:00 Active
40 mg SC QPM
Flush (0.9% Sodium Chloride) [Flush (Nss)] Med 05/12/24 17:00 Active
See Dose Instructions IV PER PROTOCOL
Guaifenesin Solution [Robitussin] Med 05/13/24 12:46 Active
200 mg PO Q4HPRN PRN
Lactobac/Bifidobac [Visbiome] Med 05/13/24 08:00 Active
1 cap PO DAILY
Sennosides [Senokot] Med 05/14/24 22:00 Active
17.2 mg PO HS
Sodium Chloride [[place], Saline Mist] Med 05/14/24 21:04 Active
See Dose Instructions NASAL QIDPRN PRN
dalfampridine Med 05/13/24 13:00 Active
See Dose Instructions PO BID
Vitals:
Temp Pulse Resp BP Pulse Ox
98.7 F 82 20 100/64 95
05/16/24 07:20 05/16/24 07:20 05/16/24 07:20 05/16/24 07:20 05/16/24 07:20
Height 5 ft 3 in
Actual Weight 70.505 kg
Body Mass Index (BMI) 27.5
Physical Exam:
General Appearance/Observation: Well-developed, well-nourished female in no apparent distress. Resting in bed
Pain/Comfort Assessment: Denies
Mood/Affect: Appropriate, pleasant
Integumentary/Operative Site:
Pressure Ulcer Evaluation: absent over heels. wedge cushion underneath knees and heels
Eyes: Conjunctiva/Lids: normal Pupils: pupils equal round and reactive to light and Accommodation
Ears/Nose/Throat: oral mucosa moist, throat clear. Lips/Teeth/Gums: normal
Neck: muscle spasm and tenderness
Cardiovascular: Heart: regular, no murmur
Pulses: dorsalis pedis 2+ bilaterally
Respiratory: Respiratory Effort/Chest Expansion: normal Auscultation: Clear to auscultation bilaterally
Gastrointestinal: abdomen not tender, no distension, normal abdominal bowel sounds
Genitourinary: purwick
Extremities: Edema: Trace bilateral lower extremities cyanosis: None Trophic changes: None
Neurology Exam:
Orientation: Alert, Oriented to self, Time, Place
Memory: Intact for immediate medical concerns
Repetition: Intact
Comprehension: Intact
Two step command: Intact
Naming: Intact
Cranial Nerves:
CNII: Pupillary light reflex: Intact Visual Field: Intact
CN III, IV, : Extraocular muscles: Intact
CN V: Facial Sensation at Forehead: Intact, Maxilla: Intact, Mandible: Intact
CN VII: Facial movement: Symmetric
CN VIII: Hearing: Normal
CN IX/X: Speech & swallow: Normal, Position of Uvula: Midline
CN XI: Shoulder shrug: Symmetric
CN XII: Tongue protrusion: Midline
Sensory:
Light touch: Intact in bilateral upper and lower extremities
Reflexes:
Babinski: up going bilaterally
Clonus: None
Mer: Present bilaterally
Cerebellar: Dysmetria/Ataxia: None
Musculoskeletal:
�Motor: (Manual muscle scale 0-5)
� � �
Muscle� � ��� � ���SA�� ���EF� � ��� ���WE� � ��� ���EE� � ��� ���FF� � ��� ���FA� � ��� ���HF� � ��� ���KE� � ��� ���DF� � ��� ���EHL� � ��� ���PF�� �
� � ��Right� ���� � ���2+�� � � ��� ���4�� � � ��� ���4�� � � ��� ���4�� � � ��� ����� � � ��� ����� � � ��� ���1�� � � ��� ���2�� � � ��� � � � 1� � ��� �� � 1 � � ��� ���0� � � �
� � ��Left�� � ���2-� � ��� ���3� � ��� ���4� � ��� ���3� � ��� ��� � ��� ��� � ��� ���1� � ��� ���2� � ��� � � � 1- ��� �� � 0� ��� ���0�� �
� � ��� ���� ���� ���� ���� ���� ���� ���� ���� ���� ���� ���� �
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 Able to slowly make a fist. Difficulty opening her hand back up. stiffness
Tone: Increased in bilateral lower extremities limiting full range of motion.� Normal tone in bilateral upper extremities, except increase tone in left hand,fingers and decreased rom of left shoulder
Range of Motion: Passively within normal limits . Decreased rom of left shoulder and ankles
Lab Results:
Labs
WBC 5.5 10^3/uL (4.8-10.8) 05/15/24 05:42
RBC 4.60 10^6/uL (4.20-5.40) 05/15/24 05:42
Hgb 13.7 g/dL (12.0-16.0) 05/15/24 05:42
Hct 39.7 % (37.0-47.0) 05/15/24 05:42
MCV 86.3 fL (81.0-99.0) 05/15/24 05:42
MCH 29.8 pg (27.0-31.0) 05/15/24 05:42
MCHC 34.5 g/dL (33.0-37.0) 05/15/24 05:42
RDW 12.6 % (11.5-14.5) 05/15/24 05:42
Plt Count 238 10^3/uL (130-400) 05/15/24 05:42
MPV 9.7 fL (7.4-10.4) 05/15/24 05:42
Abs Immat Gran (auto) 0.0 10^3/uL (0-0.05) 05/15/24 05:42
Absolute Neuts (auto) 3.3 10^3/uL (1.4-6.5) 05/15/24 05:42
Absolute Lymphs (auto) 1.4 10^3/uL (1.2-3.4) 05/15/24 05:42
Absolute Monos (auto) 0.7 10^3/uL (0.1-0.6) H 05/15/24 05:42
Absolute Eos (auto) 0.2 10^3/uL (0-0.7) 05/15/24 05:42
Absolute Basos (auto) 0.0 10^3/uL (0-0.2) 05/15/24 05:42
Immature Gran % 0.4 % (0-0.5) 05/15/24 05:42
Neutrophils % 59.2 % (42.2-75.2) 05/15/24 05:42
Lymphocytes % 25.3 % (20.5-51.1) 05/15/24 05:42
Monocytes % 11.7 % (1.7-9.3) H 05/15/24 05:42
Eosinophils % 2.7 % (0-6) 05/15/24 05:42
Basophils % 0.7 % (0-2) 05/15/24 05:42
Nucleated RBC % 0 % 05/15/24 05:42
Sodium 140 mmol/L (135-145) 05/15/24 05:42
Potassium 4.1 mmol/L (3.5-5.1) 05/15/24 05:42
Chloride 104 mmol/L (98-107) 05/15/24 05:42
Carbon Dioxide 23 mmol/L (22-30) 05/15/24 05:42
BUN 14 mg/dl (7-17) 05/15/24 05:42
Creatinine 0.6 mg/dL (0.6-1.0) 05/15/24 05:42
Estimated Creat Clear 94 ml/min 05/15/24 05:42
eGFR > 60.00 05/15/24 05:42
Glucose 105 mg/dl (70-99) H 05/15/24 05:42
Lactic Acid Cancelled 05/12/24 15:15
Calcium 8.7 mg/dl (8.4-10.2) 05/15/24 05:42
Total Bilirubin 0.5 mg/dl (0.2-1.3) 05/12/24 11:26
AST 27 U/L (14-36) 05/12/24 11:26
ALT 24 U/L (0-35) 05/12/24 11:26
Alkaline Phosphatase 84 U/L (38-126) 05/12/24 11:26
Total Protein 7.2 g/dl (6.3-8.2) 05/12/24 11:26
Albumin 4.8 g/dl (3.5-5.0) 05/12/24 11:26
Urine Color Yellow 05/15/24 11:09
Urine Clarity Very cloudy (Clear) 05/15/24 11:09
Urine pH 6.0 (5.0-9.0) 05/15/24 11:09
Ur Specific [place] 1.025 (<1.030) 05/15/24 11:09
Urine Ketones Trace (Negative) A 05/15/24 11:09
Ur Occult Blood Reflex 3+ (Negative) A 05/15/24 11:09
Urine Nitrite (Reflex) Positive (Negative) A 05/15/24 11:09
Urine Bilirubin Negative (Negative) 05/15/24 11:09
Urine Urobilinogen Negative (Neg - 1+) 05/15/24 11:09
Leukocyte Esterase Rfl 2+ (Negative) A 05/15/24 11:09
Urine RBC 11-15 /HPF (0-2) A 05/15/24 11:09
Urine WBC (Reflex) 40-50 /HPF (0-5) A 05/15/24 11:09
Ur Squamous Epith Cells 6-10 /LPF (Few) 05/15/24 11:09
Ur Urothelial Cells 0-2 /LPF (FEW) 05/15/24 11:09
Urine Bacteria (Reflex) Many (Negative) A 05/15/24 11:09
Urine Glucose Negative (Negative) 05/15/24 11:09
Urine Albumin (Reflex) Trace (Neg - Trace) 05/15/24 11:09
SARS-CoV-2 Antigen Negative (Negative) 05/12/24 11:26
Diagnostic Results: as per HPI
Assessment: 58-year-old female with PMH (Multiple sclerosis, urinary incontinence, neurogenic bladder,urinary tract infections, GERD, constipation, COVID-19) presented to [facility] on 05/12/2024 with significant generalized weakness and
URI symptoms. Found to have UTI was treated with antibiotics.
Plan
PT/OT to increase independence with ADLs, improve balance, coordination, endurance, strength, mobility, community reintegration, decreased burden of care on others and family education.
Debility: PT/OT
Spasticity: Continue baclofen 10 mg p.o. 5 times a day. Adjust medications as needed. Continue range of motion exercises and stretching program.
MS: Continue dalfampridine 10 mg p.o. twice a day. Continue to monitor neurologic status. Per neurology-no role for high-dose IV steroids at the moment
Kluyvera ascorbata UTI : Low grade fevers. On chronic nitrofurantoin for recurrent UTI as outpatient-started 1 week ago per patient. Blood culture negative, urine [id number]-[id number]-Z.coli >100,000. Was started on cefepime, but changed to Cipro due
to development of red itchy rash on arms
Anemia: Likely multifactorial. Continue to monitor.
Psych: Psychology consult. Monitor mood, adjust medications as needed.
Skin: monitor for pressure sores/rashes/lesions. Rash on both arms possible reaction to cefepime- to receive 1 dose of steroids.
Pain: acetaminophen as needed.
Bowel/constipation: Colace, Senna, PRN bisacodyl.
Neurogenic bladder: Has hypotonic bladder and detrusor hyperactivity. -Follows with Dr. Watkins. Toby, consider Botox versus bladder implant versus suprapubic catheter.
GI Prophylaxis: Pantoprazole
DVT Prophylaxis: Mechanical and Lovenox
Pulmonary: Incentive spirometry
Safety: Continue to reinforce assistance with all transfers.
Code Status: Full code
Dispo (date/plan/equipment needs): Home with family care. Social history reviewed.
Functional and Medical Goals: Modified Independent with ADL�s, ambulation, transfers
Discharge disposition: acute inpatient rehab
Summary recommendations: Patient with MS known to [facility] acute inpatient from prior admission due to functional decline, worsening weakness usually after an infection. Currently admitted with worsening weakness, URI symptoms requiring 2 people assist
which is a significant decrease from her baseline. She would benefit from a short acute rehab to bring her back to at least 1 person assist in order to go home at her baseline.
Pain: acetaminophen as needed.
Bowel/constipation: Colace, Senna, PRN bisacodyl.
Debility:Cont PT/OT
MS: dalfampridine 10 mg p.o. twice a day. Continue to monitor neurologic status. Per neurology-no role for high-dose IV steroids at the moment
Suspect UTI : Low grade fevers. On chronic nitrofurantoin for recurrent UTI as outpatient-started 1 week ago per patient. Blood culture negative, urine [id number]-I.coli >100,000. Was started on cefepime, but changed to Cipro due to
development of red itchy rash on arms
DVT Prophylaxis: Mechanical and Lovenox
Pulmonary: Incentive spirometry
Safety: Continue to reinforce assistance with all transfers.
Thank you for allowing me to care for your patient. Please contact me with any questions or concerns.
[2024-05-16] MEDS: LOVENOX 40 MG SC (18:35)
[2024-05-16] MEDS: ROBITUSSIN 200 MG PO (18:43)
[2024-05-16] MEDS: ANESTHETIC LOZENGE 1 LOZENGE PO (18:43)
[2024-05-16] MEDS: SENOKOT 17.2 MG PO (20:16)
[2024-05-16 23:45] VITALS: BP 105/60
[2024-05-17] MEDS: BENADRYL 25 MG PO ×4 (00:10→20:43)
[2024-05-17 07:45] VITALS: BP 99/58
[2024-05-17] MEDS: VISBIOME 1 CAP PO (08:45)
[2024-05-17] MEDS: VITAMIN D3 (cholecalciferol) 125 MCG PO (08:45)
[2024-05-17] MEDS: CIPRO 500 MG PO (08:45)
[2024-05-17] MEDS: NON-FORMULARY ITEM 10 MG PO ×2 (08:45→20:43)
[2024-05-17] MEDS: LIORESAL 10 MG PO ×5 (08:45→20:42)
--- NOTE | 2024-05-17 10:08 | W.PN.HOSP.TC ---
Today's Communication/Plan
-
likely dc in am
Assessment / Plan
Assessment / Plan
Physical exam:
General: Well Developed, Well Nourished and No Apparent Distress
HEENT: Normocephalic, Atraumatic and Moist Mucous Membranes
Respiratory: Clear to Auscultation; Negative Wheezes, Rales or Rhonchi
Cardiac: Regular Rhythm and S1/S2
GI: Soft, Nontender and Nondistended
Musculoskeletal: No Clubbing, No Cyanosis and No Edema
Skin : red skin rash in upper extremities.
Neuro: Awake, Alert and Oriented, generalized weakness still present, weakness, she followed commands.
Psych: Calm
A/P:
# Skin rash
Likely drug rash
s/p one dose of steroid, PRN Benadryl
# UTI with Kluyvera ascorbata
Will change Abx to Bactrim
Fever is resolved
I d/w her urologist Dr Watkins, recommended renal and bladder US.
Order straight cath BID.
On chronic nitrofurantoin for recurrent UTI as outpatient which raises concern regarding false negative urinalysis, stopped. .
Continue monitor temperature and symptoms
Supportive care
#Multiple sclerosis:
Exacerbation by active UTI & Fever. her weakness is improving with ABx treatment but will need PT to get her back to her baseline.
Continue dalfampridine 10 mg p.o. twice a day
Continue baclofen 10 mg p.o. 5 times a day
Discussed with neurology on 05/13 (Dr. Urban Alvarez) and no role for high-dose IV steroids so discontinued consult for now unless patient has major exacerbation in which case can call them back.
Continue to monitor neurological
Consulted Dr Monteiro
DVT prophylaxis:
Lovenox
CODE STATUS:
Full code
# Constipation, d/w pt, Senna is not helping, will do Dulcolax supp. Abdomen is soft, no nausea.
Total time spent to see the patient, examine the patient, review data and lab results, discuss treatment plan with patient, geriatric case manager, nursing staff around 55 minutes
Anticipated Discharge: Within 24 hours
Subjective/Interval History
-
Date of Service: May 17, 2024
She feel better
Objective Data
-
Vital Signs:
Vital Signs
Temp Pulse Resp BP Pulse Ox
98.3 F 76 16 99/58 99
05/17/24 07:45 05/17/24 07:45 05/17/24 07:45 05/17/24 07:45 05/17/24 07:45
I&O
05/16/24 05/17/24 05/18/24
06:59 06:59 06:59
Intake Total 660 / 660 360 / 360
Output Total 275 / 275 950 / 950
Balance 385 / 385 -590 / -590
--- NOTE | 2024-05-17 11:32 | VATNOTE ---
During routine assessment, noted that area of RUE near old IV site that was red/swollen/itchy now appears larger. Re-marked with skin marker. Discussed with MD LAKISHA already aware.
[2024-05-17] MEDS: ROBITUSSIN 200 MG PO (12:17)
[2024-05-17 15:12] VITALS: BP 101/50
[2024-05-17] MEDS: LOVENOX 40 MG SC (16:11)
[2024-05-17] MEDS: ANESTHETIC LOZENGE 1 LOZENGE PO (16:14)
--- NOTE | 2024-05-17 17:29 | CM ---
Spoke with Ambrosio Paz she said pt appropriate. [facility] [employer] also agreed at her eval.
said she felt pt would be ready for dc tomorrow.
[facility] has a bed tomorrow.
Pt was happy about rehab at [facility].
IMM reviewed signed and on chart.
PLAN Pt to [facility] when medically ready
[2024-05-17] MEDS: BACTRIM DS 800 MG/160 MG 1 TABLET PO (20:43)
[2024-05-17] MEDS: SENOKOT 17.2 MG PO (20:43)
[2024-05-17 23:45] VITALS: BP 101/60
[2024-05-18] MEDS: BENADRYL 25 MG PO (04:12)
[2024-05-18 07:12] VITALS: BP 103/63
[2024-05-18] MEDS: VITAMIN D3 (cholecalciferol) 125 MCG PO (08:19)
[2024-05-18] MEDS: BACTRIM DS 800 MG/160 MG 1 TABLET PO (08:19)
[2024-05-18] MEDS: VISBIOME 1 CAP PO (08:20)
[2024-05-18] MEDS: LIORESAL 10 MG PO ×2 (08:20→12:15)
[2024-05-18] MEDS: NON-FORMULARY ITEM 10 MG PO (08:21)
--- NOTE | 2024-05-18 09:52 | W.PN.HOSP.TC ---
Today's Communication/Plan
-
dc
Assessment / Plan
Assessment / Plan
Physical exam:
General: Well Developed, Well Nourished and No Apparent Distress
HEENT: Normocephalic, Atraumatic and Moist Mucous Membranes
Respiratory: Clear to Auscultation; Negative Wheezes, Rales or Rhonchi
Cardiac: Regular Rhythm and S1/S2
GI: Soft, Nontender and Nondistended
Musculoskeletal: No Clubbing, No Cyanosis and No Edema
Skin : red skin rash in upper extremities.
Neuro: Awake, Alert and Oriented, generalized weakness still present, weakness, she followed commands.
Psych: Calm
A/P:
# Skin rash
Not worsening
Likely drug rash
s/p one dose of steroid, PRN Benadryl
# UTI with Kluyvera ascorbata
Changed to Bactrim
Fever is resolved
I d/w her urologist Dr Watkins and updated her. .
Ordered straight cath BID.
On chronic nitrofurantoin for recurrent UTI as outpatient which raises concern regarding false negative urinalysis, stopped. .
No further fevers
Renal US unremarkable.
s/p IVF
#Multiple sclerosis:
Exacerbation by active UTI & Fever. her weakness is improving with ABx treatment but will need PT to get her back to her baseline.
Continue dalfampridine 10 mg p.o. twice a day
Continue baclofen 10 mg p.o. 5 times a day
Consulted Dr Monteiro, pt will need acute rehab.
#DVT prophylaxis:
Lovenox
CODE STATUS:
Full code
# Constipation, d/w pt, s/ Senna & Dulcolax supp. Abdomen is soft, no nausea.
Total discharge time spent to see the patient, examine the patient, review data and lab results, discuss discharge plan with patient, employment evaluator/case manager, nursing staff around 65 minutes
Anticipated Discharge: Today
Subjective/Interval History
-
Date of Service: May 18, 2024
Doing well
Objective Data
-
Vital Signs:
Vital Signs
Temp Pulse Resp BP Pulse Ox
97.8 F 74 16 103/63 92
05/18/24 07:12 05/18/24 07:12 05/18/24 07:12 05/18/24 07:12 05/18/24 07:12
I&O
05/17/24 05/18/24 05/19/24
06:59 06:59 06:59
Intake Total 360 / 360 800 / 800
Output Total 950 / 950 800 / 800
Balance -590 / -590 0 / 0
--- NOTE | 2024-05-18 11:06 | CM ---
entered order for discharge.
Spoke with Ambrosio Hopkins she said pt appropriate. [facility] SIGNAL TESTER also agreed at her eval.
Pt was happy about rehab at [facility].
F[facility]
report [phone]
fax [phone]
PLAN Pt to [facility]
--- NOTE | 2024-05-18 11:25 | W.DCSUMMARY ---
Discharge Summary
Discharge Data
Date of Admission: 05/15/24
Date of Discharge: 05/18/24
-
Pending Results: No
Hospital Course
58 years old female presented with worsening weakness and fevers at home. Patient was diagnosed with urinary tract infection with kluyvera Ascorbata. Blood culture did not show any growth. She was given intravenous antibiotic. Patient started to
improve. She was noticed to have worsening weakness and felt to be related to multiple sclerosis exacerbation due to active infection. Renal ultrasound and bladder did not show acute abnormalities. Patient's primary urologist was updated.
Patient was evaluated by Dr. Esquivel and recommended acute rehab course. Patient remained hemodynamically stable and was discharged to acute rehab in a stable condition.
Discharge Plan
-
Patient Disposition: Acute Rehab Facility
Discharge Diagnosis/Procedures: MS exacerbation
UTI
Diet: As tolerated
Referrals:
Uli Kohler MD [Family Provider] -
Prescriptions:
New
acetaminophen 325 mg Tablet
650 mg PO Q4HPRN PRN (Reason: mild pain/HOLLOWAY/temp> 100.4F) Qty: 10 0RF
sennosides [Senna Laxative] 8.6 mg Tablet
17.2 mg PO HS Qty: 10 0RF
bisacodyl 10 mg Suppository
10 mg MD DAILYPRN PRN (Reason: constipation) Qty: 10 0RF
diphenhydramine HCl 25 mg Capsule
25 mg PO Q4HPRN PRN (Reason: itching) Qty: 10 0RF
sulfamethoxazole-trimethoprim 800-160 mg Tablet
1 tab PO BID Qty: 4 0RF
Continued
dalfampridine 10 mg tablet extended release 12 hr
10 mg PO BID
cholecalciferol (vitamin D3) [Vitamin D3] 125 mcg (5,000 unit) Tablet
125 mcg PO DAILY
Visbiome 112.5 billion cell Capsule
1 cap PO DAILY
baclofen 10 mg tablet
10 mg PO 5/D
estradiol [Estrace] 0.01 % (0.1 mg/gram) Cream
1 appful VAGINAL Q72H
Discontinued
cranberry extract 200 mg Capsule
200 mg PO DAILY
nitrofurantoin macrocrystal 50 mg Capsule
50 mg PO DAILY
Discharge Orders:
Discharge Patient (As Directed); Ordered 05/18/24
Ordered By: Mary Ellen Duke
Discharge Date and Time
Print Language: INDONESIAN
== END 2024-05-18 13:32 | DRG 59 ==
LOC: 3 WEST ACU 10:21
PROVIDERS: Nurse Practitioner Family; Physician Assistant; ADMITTING PHYSICIAN Hospitalist; ATTENDING PHYSICIAN Internal Medicine; CONSULT PHYSICIAN Physical Medicine & Rehabilitation; EMERGENCY PHYSICIAN Emergency Medicine; FAMILY PHYSICIAN Family Medicine
DX: G35 Multiple sclerosis (principal); M80.88XA Other osteoporosis with current pathological fracture, vertebra(e), initial encounter for fracture; N39.0 Urinary tract infection, site not specified; B96.89 Other specified bacterial agents as the cause of diseases classified elsewhere; D64.9 Anemia, unspecified; J06.9 Acute upper respiratory infection, unspecified; K59.00 Constipation, unspecified; N31.9 Neuromuscular dysfunction of bladder, unspecified; K21.9 Gastro-esophageal reflux disease without esophagitis; R53.81 Other malaise; Z79.899 Other long term (current) drug therapy; Z87.440 Personal history of urinary (tract) infections; Z87.891 Personal history of nicotine dependence; Z86.16 Personal history of COVID-19; Z90.89 Acquired absence of other organs; Z88.1 Allergy status to other antibiotic agents
CPT/HCPCS: 51701; 71046; 76770; 80048; 80053; 81003; 81015; 83605; 85025; 85027; 87040; 87077; 87086; 87186; 87502; 87811; 93005; 96360; 96361; 97110; 97112; 97163; 97167; 97530; 97535; 99285

== ENCOUNTER → 2024-06-11 15:02 | Outpatient (REF) | payer MEDICARE, OTHER, SELFPAY ==
[2024-06-11 15:15] LABS: Urine Albumin 1+ (Neg - Trace); Urine Bilirubin Negative (Negative); Urine Character Very Cloudy (Clear); Urine Color Yellow; Urine Glucose Negative (Negative); Urine Ketone Negative (Negative); Urine Leukocyte 2+ (Negative); Urine Nitrite Negative (Negative); Urine Occult Blood 2+ (Negative); Urine Specific Gravity 1.015 (<1.030); Urine Urobilinogen Negative (Neg - 1+); Urine pH 6.5 (5.0-9.0)
[2024-06-11 15:24] LABS: Urine Bacteria Moderate (Negative); Urine Red Blood Cell 26-30 /HPF (0-2); Urine White Cell >100 /HPF (0-5)
== END ==
LOC: OLAB 15:02
PROVIDERS: ATTENDING PHYSICIAN Student in an Organized Health Care Education/Training Program
DX: R30.9 Painful micturition, unspecified (principal)
CPT/HCPCS: 81003; 81015; 87077; 87086

== ENCOUNTER → 2024-07-10 10:54 | Outpatient (REF) | payer MEDICARE, OTHER, SELFPAY | LOC: HWWDC 10:54 | PROVIDERS: ATTENDING PHYSICIAN Family Medicine | DX: Z12.31 Encounter for screening mammogram for malignant neoplasm of breast (principal) | CPT/HCPCS: 77063; 77067 ==

== ENCOUNTER → 2025-04-20 11:07 | Outpatient (REF) | payer MEDICARE, OTHER, SELFPAY | LOC: RAD 11:07 | PROVIDERS: ATTENDING PHYSICIAN Urology; FAMILY PHYSICIAN Family Medicine | DX: N20.0 Calculus of kidney (principal); N31.9 Neuromuscular dysfunction of bladder, unspecified; N39.41 Urge incontinence; N39.0 Urinary tract infection, site not specified | CPT/HCPCS: 74018; 76770 ==